=== PATIENT | male | born 1990 | race Caucasian/White ===

== ENCOUNTER 2020-12-11 07:43 | Outpatient (REF) | payer MEDICAID, SELFPAY | END 2020-12-11 07:44 | disposition home or self-care (01) | LOC: HO.LAB 07:43 | PROVIDERS: Visit Provider Internal Medicine | DX: Z20.822 Contact with and (suspected) exposure to COVID-19 (principal) | CPT/HCPCS: C9803; U0003; U0005 ==

== ENCOUNTER 2022-09-17 11:26 | Emergency (ER) | payer MEDICAID, SELFPAY ==
[2022-09-17 11:58] VITALS: BP 134/90; PULSE 119; RESP 20; TEMP 37.2; O2SAT 98; BMI 21.5
--- NOTE | 2022-09-17 11:59 | ED.BACK ---
HPI - Back Pain/Injury General Chief Complaint: Back Pain/Injury <LEANNE Manuel Last Filed: 09/17/22 12:01> Stated Complaint: Upper back pain <LEANNE Manuel Last Filed: 09/17/22 12:01> Time Seen by Provider: 09/17/22 12:08 <LEANNE Manuel Last Filed: 09/17/22 12:01> Source: patient <LEANNE Rodriguez Last Filed: 09/17/22 14:55> Mode of arrival: ambulatory <LEANNE Rodriguez Last Filed: 09/17/22 14:55> History of Present Illness HPI Narrative: 42-year-old male with no significant past medical history presenting to the ED complaining of right mid/lower back pain x1 week s/p picking up & twirling his child. Reports radiation down bilateral lower extremities. Denies numbness, tingling, weakness, urinary incontinence/retention, fever, hematuria <LEANNE Rodriguez Last Filed: 09/17/22 14:55> MD elicited complaint: back pain <LEANNE Rodriguez Last Filed: 09/17/22 14:55> Related Data Home Medications: Previous Rx's Medication Instructions Recorded acetaminophen 500 mg tablet 500 mg PO Q6H PRN fever or pain 09/17/22 (Tylenol Extra Strength) #14 tabs cyclobenzaprine 5 mg tablet 5 mg PO Q8H PRN pain (scale score 09/17/22 7-10) 5 days #14 tabs lidocaine 5 % topical patch 1 patch topical DAILY PRN pain #30 09/17/22 (Lidoderm) ea naproxen 500 mg tablet 500 mg PO BID PRN pain 10 days #20 09/17/22 tabs <LEANNE Manuel Last Filed: 09/17/22 12:01> Allergies/Adverse Reactions: Allergies Allergy/AdvReac Type Severity Reaction Status Date / Time Penicillins [PENICILLINS] Allergy Unknown UNKNOWN Verified 09/17/22 13:30 <LEANNE Manuel Last Filed: 09/17/22 12:01> Review of Systems Review of Systems: Constitutional: No Fever, No Chills ENT/Mouth: No Ear Pain, No Nasal Congestion Cardiovascular: No Chest Pain, No SOB Respiratory: No Cough, No Wheezing Gastrointestinal: No Nausea, No Vomiting, No Diarrhea, No Constipation, No Abdominal pain Genitourinary: No Dysuria, No Urinary Frequency, No Hematuria, No Urinary Incontinence/retention, No Flank Pain Musculoskeletal: + joint pain, No Myalgias, No Joint Swelling Skin: No Skin Lesions, No rash Neuro: No Weakness, No Numbness, No Paresthesias <LEANNE Rodriguez - Last Filed: 09/17/22 14:55> Yes all other systems are reviewed and are negative <LEANNE Rodriguez - Last Filed: 09/17/22 14:55> Constitutional: Constitutional: Reports as per HPI <LEANNE Rodriguez - Last Filed: 09/17/22 14:55> Neurologic: Denies Sensory deficit (Neuro) <LEANNE Rodriguez - Last Filed: 09/17/22 14:55> [facility] Past Medical History Attestation statement: The following information was validated with the patient. <LEANNE Rodriguez - Last Filed: 09/17/22 14:55> Social History Social History: Social History Advance Directives: No Advance Directives Information Provided: Yes <LEANNE Manuel - Last Filed: 09/17/22 12:01> Physical Exam Vital Signs: Vital Signs: Last Vital Signs Temp 98.8 F 09/17/22 14:39 Pulse 100 09/17/22 14:39 Resp 16 09/17/22 14:39 BP 115/65 09/17/22 14:39 Pulse Ox 98 09/17/22 14:39 O2 Del Method 09/17/22 14:39 BMI result Body Mass Index 21.5 <LEANNE Manuel - Last Filed: 09/17/22 12:01> Vital Signs: Last Vital Signs Temp 98.8 F 09/17/22 14:39 Pulse 100 09/17/22 14:39 Resp 16 09/17/22 14:39 BP 115/65 09/17/22 14:39 Pulse Ox 98 09/17/22 14:39 O2 Del Method 09/17/22 14:39 BMI result Body Mass Index 21.5 <LEANNE Rodriguez - Last Filed: 09/17/22 14:55> Const: General: cooperative, healthy appearing and no acute distress <LEANNE Rodriguez - Last Filed: 09/17/22 14:55> Orientation/consciousness: patient oriented x3 <LEANNE Rodriguez - Last Filed: 09/17/22 14:55> Limitations: no limitations <LEANNE Rodriguez - Last Filed: 09/17/22 14:55> HEENT: Head: Yes normal to inspection and Yes atraumatic <Merissa Rg PA - Last Filed: 09/17/22 14:55> Ears: hearing grossly normal bilaterally <LEANNE Rodriguez - Last Filed: 09/17/22 14:55> General nose exam: Normal external nose present <LEANNE Rodriguez - Last Filed: 09/17/22 14:55> Face and sinus: Yes normal facial exam <LEANNE Rodriguez - Last Filed: 09/17/22 14:55> Eyes: General: appearance normal, both eyes and all related structures <Merissa Rg PA - Last Filed: 09/17/22 14:55> EOM: EOMs intact bilaterally <LEANNE Rodriguez - Last Filed: 09/17/22 14:55> Neck: Neck: Yes normal visual inspection and Yes no meningeal signs <LEANNE Rodriguez - Last Filed: 09/17/22 14:55> Resp: Effort & Inspection: normal respiratory effort and no respiratory distress <LEANNE Rodriguez - Last Filed: 09/17/22 14:55> Cardio: Rate: regular rate <Merissa Rg PA - Last Filed: 09/17/22 14:55> Heart sounds: S1 normal heart sound present and S2 normal heart sound present <LEANNE Rodriguez - Last Filed: 09/17/22 14:55> GI: Inspection: Yes normal to inspection <LEANNE Rodriguez - Last Filed: 09/17/22 14:55> Palpation (GI): Soft to palpation, nontender, no guarding and not rigid <LEANNE Rodriguez - Last Filed: 09/17/22 14:55> : General: Yes no CVA tenderness <Merissa Rg PA - Last Filed: 09/17/22 14:55> Back/Spine/Pelvis: Other: No midline thoracic/lumbar spinous tenderness/step-off or deformity. + bilateral lower thoracic/upper lumbar MSK tenderness to palpation. No crepitus/erythema or ecchymosis <Merissa Rg PA - Last Filed: 09/17/22 14:55> Back: no CVA tenderness <Merissa Rg PA - Last Filed: 09/17/22 14:55> Skin: Rashes: no rashes <Merissa Rg PA - Last Filed: 09/17/22 14:55> Wounds: no wounds <Merissa Rg PA - Last Filed: 09/17/22 14:55> Neuro: Other: Strength intact throughout. No saddle anesthesia. Sensation intact to light touch. Neurovascular intact distally <Merissa Rg PA - Last Filed: 09/17/22 14:55> General: patient oriented x3, gait normal, tone normal, moves all extremities, no meningeal signs, no focal motor deficits and CN's II-XI intact bilaterally <Merissa Rg PA - Last Filed: 09/17/22 14:55> Gait exam (Neuro): Normal gait present <Merissa Rg PA - Last Filed: 09/17/22 14:55> Motor exam (neuro): 5/5 motor strength present throughout <Merissa Rg PA - Last Filed: 09/17/22 14:55> Sensory Exam: No Sensory deficit (Neuro) <Merissa Rg PA - Last Filed: 09/17/22 14:55> Extrem: General: Yes normal to inspection <LEANNE Rodriguez - Last Filed: 09/17/22 14:55> Course Course Course Narrative: RME-12PM - 32yoM with No Sig PMHx who is presenting to the ER with complaints of right upper back pain that started a day after he was lifting and holding his baby. Reports he has never had this pain in the past. He denies any fevers, chest pain, abdominal pain, nausea/vomiting, dysuria, hematuria, saddle anesthesias, urinary bowel incontinence or retention, recent falls or trauma, IV drug use or any other symptoms complaints or concerns at this time. Plan: Patient most likely muscular skeletal pain. Patient will be evaluated in [facility] [place] [facility] [place]. <LEANNE Manuel - Last Filed: 09/17/22 12:01> RME-12PM - 32yoM with No Sig PMHx who is presenting to the ER with complaints of right upper back pain that started a day after he was lifting and holding his baby. Reports he has never had this pain in the past. He denies any fevers, chest pain, abdominal pain, nausea/vomiting, dysuria, hematuria, saddle anesthesias, urinary bowel incontinence or retention, recent falls or trauma, IV drug use or any other symptoms complaints or concerns at this time. Plan: Patient most likely muscular skeletal pain. Patient will be evaluated in [facility] [place] [facility] [place]. -[id number]--patient reports symptomatic improvement after p.o. medications given in the ED. Heart rate improved Results discussed with patient including worrisome signs and symptoms and strict return precautions, and when to return to the emergency department. They verbalized understanding and feel safe for discharge at this time. <LEANNE Rodriguez - Last Filed: 09/17/22 14:55> Medications Administered Discontinued Medications Generic Name Dose Route Start Last Admin Trade Name Freq PRN Reason Stop Dose Admin Cyclobenzaprine HCl 10 mg 09/17/22 12:30 09/17/22 13:32 Cyclobenzaprine Hcl 10 Mg Tablet PO 09/17/22 12:31 10 mg ONCE ONE Administration Ketorolac Tromethamine 30 mg 09/17/22 12:30 09/17/22 13:31 Ketorolac Tromethamine 30 Mg/Ml Vial IM 09/17/22 12:31 30 mg ONCE ONE Administration Lidocaine 1 patch 09/17/22 12:30 09/17/22 13:31 Lidocaine 4 % Patch Adh..Patch TRANSDERMA 09/17/22 12:31 1 patch ONCE ONE Administration Protocol <LEANNE Manuel - Last Filed: 09/17/22 12:01> Medications Administered Discontinued Medications Generic Name Dose Route Start Last Admin Trade Name Freq PRN Reason Stop Dose Admin Cyclobenzaprine HCl 10 mg 09/17/22 12:30 09/17/22 13:32 Cyclobenzaprine Hcl 10 Mg Tablet PO 09/17/22 12:31 10 mg ONCE ONE Administration Ketorolac Tromethamine 30 mg 09/17/22 12:30 09/17/22 13:31 Ketorolac Tromethamine 30 Mg/Ml Vial IM 09/17/22 12:31 30 mg ONCE ONE Administration Lidocaine 1 patch 09/17/22 12:30 09/17/22 13:31 Lidocaine 4 % Patch Adh..Patch TRANSDERMA 09/17/22 12:31 1 patch ONCE ONE Administration Protocol <LEANNE Rodriguez - Last Filed: 09/17/22 14:55> Medical Decision Making Medical Decision Making MDM Narrative: 42-year-old male with no significant past medical history presenting to the ED complaining of right mid/lower back pain x1 week s/p picking up & twirling his child. On exam in pain, tachycardic likely from pain, NAD, no midline spinous tenderness through or red flag symptoms. Ambulating with steady gait. Concern for MSK pain/strain and muscle spasming vs sciatica. Low suspicion for fracture, cauda equina/cord compression, renal stone/pyelo Plan: Pain control, reassess Please refer to course for remaining clinical decision making, interpretation of labs/imaging results, and discussions with consultants and/or family members. <LEANNE Rodriguez Last Filed: 09/17/22 14:55> Differential Diagnosis Differential Diagnoses: The differential diagnosis associated with the presentation includes <LEANNE Rodriguez Last Filed: 09/17/22 14:55> As above <LEANNE Rodriguez Last Filed: 09/17/22 14:55> Prescription Management I considered prescription management with: Pain Medication <LEANNE Rodriguez Last Filed: 09/17/22 14:55> Discharge Plan Discharge Clinical Impression: Back pain <LEANNE Manuel Last Filed: 09/17/22 12:01> Patient Disposition: Home, Self-Care <LEANNE Manuel Last Filed: 09/17/22 12:01> Instructions: Back Pain (ED) <LEANNE Manuel Last Filed: 09/17/22 12:01> Additional Instructions: Your pain is likely musculoskeletal Flexeril is a muscle relaxer, take at night as it makes you drowsy, do not drive, drink alcohol, or operate machinery while taking it Naproxen as an anti-inflammatory / pain medication, take with food Lidoderm patches are numbing patches, apply to painful area In addition take Tylenol at home If symptoms persist or worsen, pain becomes unbearable, you developed urinary retention or incontinence, or weakness return to the ED <LEANNE Manuel - Last Filed: 09/17/22 12:01> Prescriptions: New acetaminophen [Tylenol Extra Strength] 500 mg tablet 500 mg PO Q6H PRN (Reason: fever or pain) Qty: 14 0RF lidocaine [Lidoderm] 5 % adhesive patch,medicated 1 patch topical DAILY MDD remove after 12 hours PRN (Reason: pain) Qty: 30 0RF Rx Instructions: leave on most painful area for up to 12 hrs naproxen 500 mg tablet 500 mg PO BID PRN (Reason: pain) 10 Days Qty: 20 0RF cyclobenzaprine 5 mg tablet 5 mg PO Q8H PRN (Reason: pain (scale score 7-10)) 5 Days Qty: 14 0RF <LEANNE Manuel - Last Filed: 09/17/22 12:01> Referrals: Faye Garcia MD [Primary Care Provider] - 5 days <LEANNE Manuel - Last Filed: 09/17/22 12:01>
[2022-09-17] MEDS: Lidocaine 4 % Patch ADH..PATCH 1 PATCH TRANSDERMA (13:31)
[2022-09-17] MEDS: Ketorolac Tromethamine 30 MG/ML VIAL IM (13:31)
[2022-09-17] MEDS: Cyclobenzaprine HCl 10 MG TABLET PO (13:32)
[2022-09-17 14:39] VITALS: BP 115/65; PULSE 100; RESP 16; TEMP 37.1; O2SAT 98
== END 2022-09-17 14:58 | disposition home or self-care (01) ==
PROVIDERS: Emergency Provider Emergency Medicine; PCP Internal Medicine
DX: M54.6 Pain in thoracic spine (principal); R00.0 Tachycardia, unspecified
CPT/HCPCS: 96372; 99283; 99284; J1885

== ENCOUNTER 2022-11-26 13:40 | Emergency (ER) | payer MEDICAID, SELFPAY ==
[2022-11-26 14:57] VITALS: BP 132/68; PULSE 91; RESP 17; TEMP 36.3; O2SAT 98; BMI 25.0
--- NOTE | 2022-11-26 14:57 | ED_ITS ---
HPI - General Adult General Chief complaint: General Medical <LEANNE Rodriguez - Last Filed: 11/26/22 15:04> Stated complaint: Joint pain <LEANNE Rodriguez - Last Filed: 11/26/22 15:04> Time Seen by Provider: 11/26/22 20:34 <LEANNE Rodriguez - Last Filed: 11/26/22 15:04> Source: patient <Alexander Kirby MD - Last Filed: 11/26/22 20:57> Mode of arrival: ambulatory <Alexander Kirby MD - Last Filed: 11/26/22 20:57> Limitations: no limitations <Alexander Kirby MD - Last Filed: 11/26/22 20:57> History of Present Illness HPI narrative: 32-year-old male presents with multiple joint pains. The pains that he complains about include predominantly the PIP use, elbows, shoulders. They are associated with joint swelling. Symptoms going on for several months. Symptoms are worse with movement. He feels quite debilitated generally weak. 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 He also notes swelling to the right elbow. He does have a family history of gout. He denies any fevers or chills. No nausea vomiting. No rashes or crusty lesions. <Alexander Kirby MD - Last Filed: 11/26/22 20:57> Related Data Home medications: Previous Rx's Medication Instructions Recorded meloxicam 15 mg tablet 15 mg PO DAILY #14 tabs 11/26/22 prednisone 10 mg tablet 10 mg PO DIRECTED #44 tabs 11/26/22 <LEANNE Rodriguez - Last Filed: 11/26/22 15:04> Allergies/adverse reactions: Allergies Allergy/AdvReac Type Severity Reaction Status Date / Time Penicillins [PENICILLINS] Allergy Unknown UNKNOWN Verified 09/17/22 13:30 <LEANNE Rodriguez - Last Filed: 11/26/22 15:04> [facility] Social History Social History: Social History Advance Directives: No Advance Directives Information Provided: No <LEANNE Rodriguez Last Filed: 11/26/22 15:04> Physical Exam ED Vital Signs: Vital Signs - 24 hr 11/26/22 14:57 Temperature 97.4 F Pulse Rate 91 Respiratory Rate 17 Blood Pressure 132/68 Pulse Oximetry 98 Oxygen Delivery Method Room Air BMI result Body Mass Index 25.0 <LEANNE Rodriguez - Last Filed: 11/26/22 15:04> Vital Signs - 24 hr 11/26/22 14:57 Temperature 97.4 F Pulse Rate 91 Respiratory Rate 17 Blood Pressure 132/68 Pulse Oximetry 98 Oxygen Delivery Method Room Air BMI result Body Mass Index 25.0 <Alexander Kirby MD - Last Filed: 11/26/22 20:57> GEN: Well developed, no acute distress, alert, oriented HEENT: Normocephalic, atraumatic, normal external ears, nose appears normal Eyes: Normal to appearance Neck: Supple, no lymphadenopathy Respiratory: Talks in complete sentences, no respiratory distress Extremities: No clubbing cyanosis or edema, arthritis involving the PIP use, elbows range of motion of the shoulders bilaterally, olecranon bursitis versus tophaceous gout Neurologic: No focal neurologic deficits, cranial nerves 2-12 intact, gait normal Skin: No rash <Alexander Kirby MD - Last Filed: 11/26/22 20:57> Course Course Course Narrative: RME: 32yo M w/no sig PMHx c/o diffuse myalgias, numbness, and generalized weakness x 3mos. States I'm useless Denies fever, chills, travel, tick/insect bites No focal weakness appreciated, ambulating w/steady gait, +bursitis to L elbow EKG, labs including tick borne illness/lyme & FAYE titer ordered Full HPI, ROS and PE to be performed by primary ED provider. <LEANNE Rodriguez - Last Filed: 11/26/22 15:04> Reevaluation(s) Reevaluation #1: Patient has a symmetric polyarthritis with also olecranon bursitis. Given the duration of the symptoms, I believe a course of steroids would be appropriate at this time. Start the patient on nonsteroidal anti-inflammatory medications. I will refer the patient to Rheumatology. <Alexander Kirby MD - Last Filed: 11/26/22 20:57> Medical Decision Making Medical Decision Making MDM Narrative: 32-year-old male presents with symmetric polyarthritis particularly involving the elbows, PIP use, MCPs, shoulders. He also has what appears to be olecranon bursitis versus tophaceous gout on the right elbow. Patient will require rheumatology referral. I will start the patient on steroids and anti- inflammatory pain medications. He is aware that we would prefer to use steroid sparing treatment however, given the duration significance of his symptoms, I believe patient would benefit from a short course of steroids. <Alexander Kirby MD - Last Filed: 11/26/22 20:57> Differential Diagnosis Differential Diagnoses: The differential diagnosis associated with the presentation includes (Rheumatoid arthritis, lupus, Raulito syndrome, reactive arthritis, gout, pseudogout) <Alexander Kirby MD - Last Filed: 11/26/22 20:57> Symmetric polyarthritis <Alexander Kirby MD - Last Filed: 11/26/22 20:57> Lab Data MDM Lab Attestation statement: I reviewed the patient's lab results. <Alexander Kirby MD - Last Filed: 11/26/22 20:57> Result Diagrams: 11/26/22 15:19 11/26/22 15:19 <LEANNE Rodriguez - Last Filed: 11/26/22 15:04> Labs: Lab Results 11/26/22 11/26/22 Range/Units 15:19 15:19 WBC 10.7 (4.8-10.8) X10*3/uL RBC 3.99 L (4.60-5.80) X10*6/uL Hgb 11.0 L (14.0-18.0) g/dl Hct 34.1 L (42.0-52.0) % MCV 85.5 (80.0-98.0) fL MCH 27.6 (27.0-33.0) pg MCHC 32.3 (31.0-36.0) g/dl RDW 13.8 (11.0-16.0) % Plt Count 661 H (160-400) X10*3/uL MPV 8.8 L (9.4-12.4) fL Immature Gran % (Auto) 0.5 H (0.0-0.4) % Neut % (Auto) 73.0 (45-73) % Lymph % (Auto) 18.1 L (20-40) % Nance % (Auto) 7.0 (2-11) % Eos % (Auto) 0.7 (0-4) % Baso % (Auto) 0.7 (0-2) % Lymph # (Auto) 1.9 (1.2-4.9) X10*3/uL Nance # (Auto) 0.8 (0.1-1.2) X10*3/uL Eos # (Auto) 0.1 (0.0-0.4) X10*3/uL Baso # (Auto) 0.1 (0.0-0.2) X10*3/uL Abs Immat Gran (auto) 0.05 H (0.00-0.03) X10*3/uL Absolute Neuts (auto) 7.8 (2.0-8.3) x10*3/uL Absolute Nucleated RBC 0.000 (0.0-0.012) X10*3/uL Nucleated RBC % (auto) 0.0 (0.0-0.2) /100WBC Sodium 140 (135-145) mmol/L Potassium 4.4 (3.3-5.1) mmol/L Chloride 100 (96-108) mmol/L Carbon Dioxide 31 H (22-29) mmol/L Anion Gap 13 (12-20) BUN 14 (9-16) mg/dL Creatinine 0.87 (0.5-1.4) mg/dL Estim Creat Clear Calc 124.6 Estimated GFR > 60 Random Glucose 106 (60-115) mg/dL Calcium 9.1 (8.4-10.2) mg/dL Magnesium 1.9 (1.6-2.6) mg/dL Total Bilirubin 0.3 (0.0-1.0) mg/dL Direct Bilirubin 0.1 (0.0-0.5) mg/dL AST 17 (5-37) U/L ALT 17 (0-40) U/L Alkaline Phosphatase 72 (39-117) U/L Total Protein 7.0 (6.5-8.0) g/dL Albumin 3.6 (3.5-5.0) g/dL <LEANNE Rodriguez - Last Filed: 11/26/22 15:04> Lab Results 11/26/22 11/26/22 Range/Units 15:19 15:19 WBC 10.7 (4.8-10.8) X10*3/uL RBC 3.99 L (4.60-5.80) X10*6/uL Hgb 11.0 L (14.0-18.0) g/dl Hct 34.1 L (42.0-52.0) % MCV 85.5 (80.0-98.0) fL MCH 27.6 (27.0-33.0) pg MCHC 32.3 (31.0-36.0) g/dl RDW 13.8 (11.0-16.0) % Plt Count 661 H (160-400) X10*3/uL MPV 8.8 L (9.4-12.4) fL Immature Gran % (Auto) 0.5 H (0.0-0.4) % Neut % (Auto) 73.0 (45-73) % Lymph % (Auto) 18.1 L (20-40) % Nance % (Auto) 7.0 (2-11) % Eos % (Auto) 0.7 (0-4) % Baso % (Auto) 0.7 (0-2) % Lymph # (Auto) 1.9 (1.2-4.9) X10*3/uL Nance # (Auto) 0.8 (0.1-1.2) X10*3/uL Eos # (Auto) 0.1 (0.0-0.4) X10*3/uL Baso # (Auto) 0.1 (0.0-0.2) X10*3/uL Abs Immat Gran (auto) 0.05 H (0.00-0.03) X10*3/uL Absolute Neuts (auto) 7.8 (2.0-8.3) x10*3/uL Absolute Nucleated RBC 0.000 (0.0-0.012) X10*3/uL Nucleated RBC % (auto) 0.0 (0.0-0.2) /100WBC Sodium 140 (135-145) mmol/L Potassium 4.4 (3.3-5.1) mmol/L Chloride 100 (96-108) mmol/L Carbon Dioxide 31 H (22-29) mmol/L Anion Gap 13 (12-20) BUN 14 (9-16) mg/dL Creatinine 0.87 (0.5-1.4) mg/dL Estim Creat Clear Calc 124.6 Estimated GFR > 60 Random Glucose 106 (60-115) mg/dL Calcium 9.1 (8.4-10.2) mg/dL Magnesium 1.9 (1.6-2.6) mg/dL Total Bilirubin 0.3 (0.0-1.0) mg/dL Direct Bilirubin 0.1 (0.0-0.5) mg/dL AST 17 (5-37) U/L ALT 17 (0-40) U/L Alkaline Phosphatase 72 (39-117) U/L Total Protein 7.0 (6.5-8.0) g/dL Albumin 3.6 (3.5-5.0) g/dL <Alexander Kirby MD - Last Filed: 11/26/22 20:57> Independent Interpretation I performed an independent interpretation of an: EKG (Normal sinus rhythm heart rate 78, early repolarization, question of LDH) <Alexander Kirby MD - Last Filed: 11/26/22 20:57> Prescription Management I considered prescription management with: Pain Medication <Alexander Kirby MD - Last Filed: 11/26/22 20:57> Discharge Plan Discharge Clinical Impression: Symmetrical polyarthritis, Olecranon bursitis, right elbow <LEANNE Rodriguez - Last Filed: 11/26/22 15:04> Patient Disposition: Home, Self-Care <LEANNE Rodriguez - Last Filed: 11/26/22 15:04> Instructions: Elbow Bursitis (ED), Arthritis (ED) <LEANNE Rodriguez - Last Filed: 11/26/22 15:04> Prescriptions: New prednisone 10 mg tablet 10 mg PO DIRECTED Qty: 44 0RF Rx Instructions: 6 tablets day 1-2, 5 tablets day 3-4, 4 tablets day 5-6, 3 tablets day 7-8, 2 tablets day 9-10, 1 tablet day 11-14 meloxicam 15 mg tablet 15 mg PO DAILY Qty: 14 0RF Discontinued acetaminophen [Tylenol Extra Strength] 500 mg tablet 500 mg PO Q6H PRN (Reason: fever or pain) Qty: 14 0RF lidocaine [Lidoderm] 5 % adhesive patch,medicated 1 patch topical DAILY MDD remove after 12 hours PRN (Reason: pain) Qty: 30 0RF Rx Instructions: leave on most painful area for up to 12 hrs naproxen 500 mg tablet 500 mg PO BID PRN (Reason: pain) 10 Days Qty: 20 0RF cyclobenzaprine 5 mg tablet 5 mg PO Q8H PRN (Reason: pain (scale score 7-10)) 5 Days Qty: 14 0RF <LEANNE Rodriguez - Last Filed: 11/26/22 15:04> Referrals: [facility] [place] [facility] [Provider Group] - 10 days Faye Garcia MD [Primary Care Provider] - 1 week <LEANNE Rodriguez - Last Filed: 11/26/22 15:04>
--- NOTE | 2022-11-26 15:02 | ECG_ITS ---
Test Reason : general medical Blood Pressure : / mmHG Vent. Rate : 086 BPM Atrial Rate : 086 BPM P-R Int : 162 ms QRS Dur : 098 ms QT Int : 350 ms P-R-T Axes : 068 107 052 degrees QTc Int : 418 ms Normal sinus rhythm Right axis deviation Possible Right ventricular hypertrophy Abnormal ECG When compared with ECG of 10-OCT-2017 11:08, No significant change was found Referred By: Merissa Rg Electronically Signed By:Cuauhtemoc Koch
[2022-11-26 15:30] LABS: MANUAL DIFF FLAG NO
[2022-11-26 15:34] LABS: Basophils Absolute Auto 0.1 X10*3/uL (0.0-0.2); Basophils Percent Auto 0.7 % (0-2); Eosinophils Absolute Auto 0.1 X10*3/uL (0.0-0.4); Eosinophils Percent Auto 0.7 % (0-4); Hematocrit 34.1 % (42.0-52.0); Imm Gran Abs Auto 0.05 X10*3/uL (0.00-0.03); Imm Gran Pct Auto 0.5 % (0.0-0.4); Lymphocytes Absolute Auto 1.9 X10*3/uL (1.2-4.9); Lymphocytes Percent Auto 18.1 % (20-40); Mean Corpuscular HGB Conc 32.3 g/dl (31.0-36.0); Mean Corpuscular Hemoglobin 27.6 pg (27.0-33.0); Mean Corpuscular Volume 85.5 fL (80.0-98.0); Mean Platelet Volume 8.8 fL (9.4-12.4); Monocytes Absolute Auto 0.8 X10*3/uL (0.1-1.2); Neutrophils Absolute Auto 7.8 x10*3/uL (2.0-8.3); Platelet Count 661 X10*3/uL (160-400); Red Blood Count 3.99 X10*6/uL (4.60-5.80); Red Cell Distribution Width 13.8 % (11.0-16.0); White Blood Count 10.7 X10*3/uL (4.8-10.8)
[2022-11-26 15:49] LABS: Alanine Aminotransferase 17 U/L (0-40); Albumin Level 3.6 g/dL (3.5-5.0); Alkaline Phosphatase 72 U/L (39-117); Anion Gap 13 (12-20); Aspartate Amino Transferase 17 U/L (5-37); Bilirubin Direct 0.1 mg/dL (0.0-0.5); Bilirubin Total 0.3 mg/dL (0.0-1.0); Blood Urea Nitrogen 14 mg/dL (9-16); Calcium 9.1 mg/dL (8.4-10.2); Carbon Dioxide 31 mmol/L (22-29); Chloride 100 mmol/L (96-108); Creatinine Clr Calc Pharmacy 124.6; Estimated Glomerular Filt Rate > 60; Glucose Random 106 mg/dL (60-115); Magnesium 1.9 mg/dL (1.6-2.6); Potassium 4.4 mmol/L (3.3-5.1); Sodium 140 mmol/L (135-145)
--- NOTE | 2022-11-26 20:46 | PC.NURSE ---
at bedside speaking with patient & his family ( & toddler).
[2022-11-26] MEDS: predniSONE 20 MG TABLET 60 MG PO (21:10)
[2022-11-26] MEDS: Ibuprofen 800 MG TABLET PO (21:10)
[2022-11-29 21:22] LABS: Lyme Blot 1.58 index
[2022-11-30 23:02] LABS: A. Phagocytphilium DNA,RT-PCR NOT DETECTED (NOT DETECTED); Babesia Microti DNA, RT-PCR NOT DETECTED (NOT DETECTED); Borrelia Miyamotoi,DNA RT-PCR NOT DETECTED (NOT DETECTED); E.Chaffeensis DNA RT-PCR NOT DETECTED (NOT DETECTED); Lyme(Borrelia ssp)DNA RT-PCR NOT DETECTED (NOT DETECTED)
[2022-12-01 08:03] LABS: Anti Nuclear Antibody Screen NEGATIVE (NEGATIVE)
[2022-12-01 09:21] LABS: 18 KD (IgG) Band NON-REACTIVE; 23 KD (IgG) Band NON-REACTIVE; 23 KD (IgM) Band NON-REACTIVE; 28 KD (IgG) Band NON-REACTIVE; 30 KD (IgG) Band NON-REACTIVE; 39 KD (IgM) Band NON-REACTIVE; 39KD (IgG) Band NON-REACTIVE; 41 KD (IgM) Band NON-REACTIVE; 41KD (IgG) Band NON-REACTIVE; 45 KD (IgG) Band NON-REACTIVE; 58 KD (IgG) Band NON-REACTIVE; 66 KD (IgG) Band NON-REACTIVE; 93 KD (IgG) Band NON-REACTIVE; Lyme Abs Screen POSITIVE; Lyme IgG Blot Interp NEGATIVE (NEGATIVE); Lyme IgM Blot Interp NEGATIVE (NEGATIVE)
== END 2022-11-26 21:20 | disposition home or self-care (01) ==
PROVIDERS: Physician Assistant; Emergency Provider Emergency Medicine; PCP Internal Medicine
DX: M70.21 Olecranon bursitis, right elbow (principal); M13.0 Polyarthritis, unspecified; R53.1 Weakness; Y93.9 Activity, unspecified
CPT/HCPCS: 36415; 80048; 80076; 83735; 85025; 86038; 86039; 86617; 86618; 87798; 87801; 93005; 99283

== ENCOUNTER 2023-01-31 15:00 | Outpatient (REF) | payer MEDICAID, SELFPAY ==
--- NOTE | ~2023-01-31 | XR_ITS ---
EXAMINATION: XR LUMBAR SPINE XR THORACIC SPINE CLINICAL INFORMATION: Neck and upper back back pain 4-5 months. Unable to recall injury. COMPARISON: None available. TECHNIQUE: 3 views of the cervical spine and 3 views of the thoracic line. FINDINGS: Cervical Spine: Mild degenerative changes with hypertrophic change and loss of disc space height at C6-C7. Alignment preserved. Thoracic Spine: Slight rightward curvature of the thoracic spine. Mild degenerative changes in the thoracic spine. XR/XR cervical spine 3V IMPRESSION: 1. Mild degenerative changes at C6-C7. 2. Mild multilevel degenerative changes in the thoracic spine.
--- NOTE | ~2023-01-31 | XR_ITS ---
EXAMINATION: XR LUMBAR SPINE XR THORACIC SPINE CLINICAL INFORMATION: Neck and upper back back pain 4-5 months. Unable to recall injury. COMPARISON: None available. TECHNIQUE: 3 views of the cervical spine and 3 views of the thoracic line. FINDINGS: Cervical Spine: Mild degenerative changes with hypertrophic change and loss of disc space height at C6-C7. Alignment preserved. Thoracic Spine: Slight rightward curvature of the thoracic spine. Mild degenerative changes in the thoracic spine. XR/XR thoracic spine 2V IMPRESSION: 1. Mild degenerative changes at C6-C7. 2. Mild multilevel degenerative changes in the thoracic spine.
== END 2023-01-31 15:01 | disposition home or self-care (01) ==
LOC: HO.HHCX 15:00
PROVIDERS: Visit Provider Student in an Organized Health Care Education/Training Program
DX: M54.2 Cervicalgia (principal); M25.50 Pain in unspecified joint; M54.9 Dorsalgia, unspecified
CPT/HCPCS: 72040; 72070

== ENCOUNTER 2023-06-29 12:10 | Outpatient (REF) | payer MEDICAID, SELFPAY ==
[2023-06-29 13:24] LABS: MANUAL DIFF FLAG NO
[2023-06-29 13:37] LABS: Basophils Absolute Auto 0.1 X10*3/uL (0.0-0.2); Basophils Percent Auto 0.6 % (0-2); Eosinophils Percent Auto 0.5 % (0-4); Hematocrit 44.1 % (42.0-52.0); Hemoglobin 14.3 g/dl (14.0-18.0); Imm Gran Abs Auto 0.03 X10*3/uL (0.00-0.03); Imm Gran Pct Auto 0.4 % (0.0-0.4); Lymphocytes Absolute Auto 2.6 X10*3/uL (1.2-4.9); Lymphocytes Percent Auto 31.3 % (20-40); Mean Corpuscular HGB Conc 32.4 g/dl (31.0-36.0); Mean Corpuscular Hemoglobin 29.1 pg (27.0-33.0); Mean Corpuscular Volume 89.8 fL (80.0-98.0); Mean Platelet Volume 10.4 fL (9.4-12.4); Monocytes Absolute Auto 0.7 X10*3/uL (0.1-1.2); Monocytes Percent Auto 8.2 % (2-11); Platelet Count 350 X10*3/uL (160-400); Red Blood Count 4.91 X10*6/uL (4.60-5.80); Red Cell Distribution Width 13.1 % (11.0-16.0); White Blood Count 8.4 X10*3/uL (4.8-10.8)
[2023-06-29 14:07] LABS: Alanine Aminotransferase 13 U/L (0-40); Albumin Level 4.6 g/dL (3.5-5.0); Alkaline Phosphatase 85 U/L (39-117); Anion Gap 11 (12-20); Aspartate Amino Transferase 16 U/L (5-37); Bilirubin Total 0.2 mg/dL (0.0-1.0); Blood Urea Nitrogen 15 mg/dL (9-16); C Reactive Protein 0.59 mg/dL (< or = 0.50); Calcium 9.6 mg/dL (8.4-10.2); Carbon Dioxide 28 mmol/L (22-29); Chloride 102 mmol/L (96-108); Estimated Glomerular Filt Rate > 60; Glucose Random 89 mg/dL (60-115); Potassium 4.3 mmol/L (3.3-5.1); Sodium 137 mmol/L (135-145)
[2023-06-29 14:13] LABS: Erythrocyte Sedimentation Rate 8 MM/HR (0-15)
[2023-06-29 14:16] LABS: Parathyroid Hormone Intact 36.7 pg/mL (8.7-77.1)
[2023-06-30 21:44] LABS: Prot Elec - Albumin 4.6 g/dL (3.8-4.8); Prot Elec - Alpha1 0.3 g/dL (0.2-0.3); Prot Elec - Alpha2 0.7 g/dL (0.5-0.9); Prot Elec - Beta 1 0.4 g/dL (0.4-0.6); Prot Elec - Beta 2 0.5 g/dL (0.2-0.5); Prot Elec - Gamma 1.1 g/dL (0.8-1.7); Prot Elec - Total Protein 7.5 g/dL (6.1-8.1)
[2023-07-01 12:49] LABS: PEU-Protein Creat Ratio Rand 0.041 (0.025-0.148); PEU-Rand. Prot/Creat Ratio 41 mg/g creat (25-148); PEU-Random Ur. Gamma Globulin 0 %; PEU-Random Urine A1 Globulin 0 %; PEU-Random Urine A2 Globulin 0 %; PEU-Random Urine Albumin 100 %; PEU-Random Urine Beta Globulin 0 %; PEU-Random Urine Creatinine 147 mg/dL (20-320); PEU-Random Urine Protein 6 mg/dL (5-25)
[2023-07-02 10:54] LABS: IgA 288 mg/dL (47-310); IgG 1213 mg/dL (600-1640); IgM 95 mg/dL (50-300)
== END 2023-06-29 12:11 | disposition home or self-care (01) ==
LOC: HO.HHCL 12:10
PROVIDERS: Visit Provider Student in an Organized Health Care Education/Training Program
DX: D75.839 Thrombocytosis, unspecified (principal); R77.9 Abnormality of plasma protein, unspecified; M25.50 Pain in unspecified joint
CPT/HCPCS: 36415; 80053; 82570; 82784; 83970; 84156; 84165; 84166; 85025; 85652; 86140; 86334

== ENCOUNTER 2023-07-06 13:31 | Outpatient (REF) | payer MEDICAID, SELFPAY ==
--- NOTE | 2023-07-06 13:34 | EMG_ITS ---
Chief complaint: Back and neck pain, numbness on feet when lying down Reason for referral: Evaluate for neuropathy Referred by: Dr. Headley Procedure done: Bilateral lower extremity NCS/EMG Precautions and/or limitations: None The limb temperature was monitored continuously and remained between 32-36 degrees C during the performance of the NCS. Nerve Conduction Studies Anti Sensory Summary Table ?Stim Site NR Onset (ms) Norm Onset (ms) Peak (ms) Norm Peak (ms) O-P Amp (?V) Norm O-P Amp Site1 Site2 Delta-0 (ms) Dist (cm) Tru (m/s) Norm Tru (m/s) Left Sural Anti Sensory (Lat Mall) Calf ? 2.2 3.1 <4.0 7.2 >5.0 Calf Lat Mall 2.2 14.0 64 Right Sural Anti Sensory (Lat Mall) Calf ? 2.7 3.3 <4.0 14.6 >5.0 Calf Lat Mall 2.7 14.0 52 Motor Summary Table ?Stim Site NR Onset (ms) Norm Onset (ms) O-P Amp (mV) Norm O-P Amp iAmp (mV) Amp (1st) (%) Site1 Site2 Delta-0 (ms) Dist (cm) Tru (m/s) Norm Tru (m/s) Left Peroneal Motor (Ext Dig Brev) Ankle ? 3.8 <4.0 8.5 >2.5 10.9 100.0 Ankle Ext Dig Brev 3.8 0.0 B Fib ? 12.2 7.0 9.0 82.4 B Fib Ankle 8.4 36.0 43 >40 Poplt ? 13.0 8.1 10.6 95.3 Poplt B Fib 0.8 6.0 75 >40 Right Peroneal Motor (Ext Dig Brev) Ankle ? 3.7 <4.0 5.5 >2.5 6.7 100.0 Ankle Ext Dig Brev 3.7 0.0 B Fib ? 11.2 5.2 6.5 94.5 B Fib Ankle 7.5 39.0 52 >40 Poplt ? 12.8 6.1 7.2 110.9 Poplt B Fib 1.6 6.0 37 >40 Right Tibial Motor (Abd Hernandez Brev) Ankle ? 3.8 <5 7.1 >2.5 10.4 100.0 Ankle Abd Hernandez Brev 3.8 0.0 Knee ? 12.3 7.9 12.0 111.3 Knee Ankle 8.5 43.0 51 >40 EMG ?Side Muscle Nerve Root Ins Act Fibs Psw Amp Dur Poly Recrt Int Pat Comment Right AbdHallucis MedPlantar S1-2 Nml Nml Nml Nml Nml 0 Nml Complete Right AntTibialis Dp Br Peron L4-5 Nml Nml Nml Nml Nml 0 Nml Complete Right MedGastroc Tibial S1-2 Nml Nml Nml Nml Nml 0 Nml Complete Right VastusMed Femoral L2-4 Nml Nml Nml Nml Nml 0 Nml Complete Right Peroneus Long Sup Br Peron L5-S1 Nml Nml Nml Nml Nml 0 Nml Complete Left AntTibialis Dp Br Peron L4-5 Nml Nml Nml Nml Nml 0 Nml Complete Left MedGastroc Tibial S1-2 Nml Nml Nml Nml Nml 0 Nml Complete Left VastusMed Femoral L2-4 Nml Nml Nml Nml Nml 0 Nml Complete FINDINGS: Right peroneal nerve showed normal distal latency, normal amplitude and small conduction velocity across the fibula. All other nerves tested were within normal. Concentric needle EMG was performed in selected muscles of the bilateral lower extremity. Study did not reveal signs of electric abnormalities as shown in the table below. IMPRESSION: 1. This is an abnormal study. 2. 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 3. There is no electrodiagnostic evidence for tibial neuropathy. lumbosacral plexopathy, lumbar radiculopathy, or peripheral neuropathy. Thank you for your kind referral. Hanane Avitia MD, GATO Board Certified, [place] [employer] and [employer] (ABPMR) Board Certified, [place] Board [employer] Electrodiagnostic [employer] (ABEM) CODIN [id number] MTDD
== END 2023-07-06 13:32 | disposition home or self-care (01) ==
LOC: HO.NEURO 13:31
PROVIDERS: PCP Internal Medicine; Visit Provider Student in an Organized Health Care Education/Training Program
DX: M25.50 Pain in unspecified joint (principal)
CPT/HCPCS: 95885; 95886; 95909

== ENCOUNTER 2023-07-27 12:54 | Outpatient (REF) | payer MEDICAID, SELFPAY ==
[2023-07-27 13:55] LABS: MANUAL DIFF FLAG NO
[2023-07-27 14:58] LABS: Basophils Percent Auto 0.5 % (0-2); Eosinophils Absolute Auto 0.1 X10*3/uL (0.0-0.4); Eosinophils Percent Auto 0.7 % (0-4); Hematocrit 38.6 % (42.0-52.0); Hemoglobin 12.9 g/dl (14.0-18.0); Imm Gran Abs Auto 0.04 X10*3/uL (0.00-0.03); Imm Gran Pct Auto 0.5 % (0.0-0.4); Lymphocytes Absolute Auto 2.4 X10*3/uL (1.2-4.9); Lymphocytes Percent Auto 32.3 % (20-40); Mean Corpuscular HGB Conc 33.4 g/dl (31.0-36.0); Mean Corpuscular Hemoglobin 29.5 pg (27.0-33.0); Mean Corpuscular Volume 88.1 fL (80.0-98.0); Mean Platelet Volume 10.1 fL (9.4-12.4); Monocytes Absolute Auto 0.8 X10*3/uL (0.1-1.2); Monocytes Percent Auto 10.2 % (2-11); Neutrophils Absolute Auto 4.1 x10*3/uL (2.0-8.3); Neutrophils Percent Auto 55.8 % (45-73); Platelet Count 291 X10*3/uL (160-400); Red Blood Count 4.38 X10*6/uL (4.60-5.80); Red Cell Distribution Width 13.2 % (11.0-16.0); White Blood Count 7.4 X10*3/uL (4.8-10.8)
[2023-07-27 16:11] LABS: Alanine Aminotransferase 17 U/L (0-40); Albumin Level 4.1 g/dL (3.5-5.0); Alkaline Phosphatase 83 U/L (39-117); Anion Gap 9 (12-20); Aspartate Amino Transferase 18 U/L (5-37); Bilirubin Total 0.2 mg/dL (0.0-1.0); Blood Urea Nitrogen 10 mg/dL (9-16); Calcium 9.2 mg/dL (8.4-10.2); Carbon Dioxide 29 mmol/L (22-29); Chloride 107 mmol/L (96-108); Estimated Glomerular Filt Rate > 60; Glucose Random 84 mg/dL (60-115); Potassium 4.1 mmol/L (3.3-5.1); Sodium 141 mmol/L (135-145)
[2023-07-27 16:16] LABS: Erythrocyte Sedimentation Rate 7 MM/HR (0-15)
[2023-07-28 08:03] LABS: HBS Num1 137.51 mIU/mL (0-7.99); HBc Num1 0.05 S/CO (0.00-0.79); HBsAGNum1 0.28 S/CO (0.00-0.99); Hepatitis A Antibody IgM 0.15 Index (0-0.79); Hepatitis B Core Antibody Nonreactive (Nonreactive); Hepatitis B Surface Antigen Negative (Negative); ~HepC Num1 0.08 S/CO (0.00-0.79); ~Hepatitis A Antibody IgM Nonreactive (Nonreactive); ~Hepatitis B Surface Antibody REACTIVE (Nonreactive); ~Hepatitis C Antibody Nonreactive (Nonreactive)
[2023-07-28 11:29] LABS: Prot Elec - Albumin 4.2 g/dL (3.8-4.8); Prot Elec - Alpha1 0.3 g/dL (0.2-0.3); Prot Elec - Alpha2 0.5 g/dL (0.5-0.9); Prot Elec - Beta 1 0.4 g/dL (0.4-0.6); Prot Elec - Beta 2 0.4 g/dL (0.2-0.5); Prot Elec - Gamma 0.9 g/dL (0.8-1.7); Prot Elec - Total Protein 6.7 g/dL (6.1-8.1)
[2023-07-29 14:34] LABS: IgA 257 mg/dL (47-310); IgG 1101 mg/dL (600-1640); IgM 70 mg/dL (50-300)
[2023-07-29 21:28] LABS: TS Negative Control Passed; TS Panel A 0; TS Panel B 0; TS Positive Control Passed; TSpotTB Negative (Negative)
[2023-07-31 01:18] LABS: HLA B27 Negative (Negative)
== END 2023-07-27 12:55 | disposition home or self-care (01) ==
LOC: HO.LAB 12:54
PROVIDERS: PCP Internal Medicine; Visit Provider Student in an Organized Health Care Education/Training Program
DX: L40.50 Arthropathic psoriasis, unspecified (principal); M45.9 Ankylosing spondylitis of unspecified sites in spine; M19.90 Unspecified osteoarthritis, unspecified site; Z11.7 Encounter for testing for latent tuberculosis infection; Z11.59 Encounter for screening for other viral diseases
CPT/HCPCS: 36415; 72110; 72202; 73110; 73130; 73610; 73630; 80053; 82784; 84165; 85025; 85652; 86140; 86334; 86481; 86704; 86706; 86709; 86803; 86812; 87340; 99202

== ENCOUNTER 2023-07-27 12:54 | Outpatient (AMB) | payer MEDICAID, SELFPAY ==
--- NOTE | 2023-07-27 12:55 | A.OFFVIS_ITS ---
Intake Vital Signs 07/27/23 12:57 Height 5 ft 10 in Weight 174 lb 2.643 oz BMI 25.0 BP 110/84 Blood Pressure Location Lt brachial Position Sitting Pulse 78 Pulse Source Pulse Oximeter Temp 97.8 F Temp Source Skin Pulse Oximetry (%) 98 Oxygen Delivery Method Room Air Intake Visit Reasons: Polyarthralgia Intake Note: New patient presents today for multiple joint pains that come and go. 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 He stated that the condition started about a year ago with intermittent joint pain, swelling and stiffness, including his hands, feet, right elbow, neck, upper back. He went to the emergency room 1 time when his entire body froze with stiffness and he was prescribed prednisone with dramatic improvement. He had another ER visit and was found to have right olecranon bursitis. This has since resolved. States that he has generalized morning stiffness affecting his upper neck, back and entire body lasting at least 30 minutes. He gets episodes with sausage digits affecting his right thumb. He states that has always been double jointed he never dislocated a joint. He denies any history of any rashes. Denies any GI upset. Denies any fevers. He has been taking meloxicam 7.5 mg daily regularly for past year and feels better overall. He is unaware of any family history of an autoimmune rheumatic disease [facility] Medical History Neck pain Anxiety Elevated C-reactive protein (CRP) Pain in joint, multiple sites Back pain Surgical History No history of previous surgery Family History Mother No problems noted. 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 Review of Systems Const Denies fever(s) and Denies weight gain ENT Reports neck pain Musc Reports back pain, Reports arthralgias, Reports joint swelling, Reports limited range of motion, Reports neck pain and Reports stiffness Skin/Breast Denies rash Physical Exam Vital Signs: Last Vital Signs Temp 97.8 F 07/27/23 12:57 Pulse 78 07/27/23 12:57 BP 110/84 07/27/23 12:57 Pulse Ox 98 07/27/23 12:57 Oxygen Delivery Method Room Air 07/27/23 12:57 BMI result Body Mass Index 25.0 Const General: cooperative, healthy appearing and comfortable Nutritional Appearance: average body habitus Orientation/consciousness: patient oriented x3 Limitations: no limitations HEENT Head: Yes normocephalic and Yes atraumatic Mouth: moist mucous membranes Resp Effort & Inspection: normal respiratory effort and able to speak in complete sentences Auscultation: clear to auscultation bilaterally Cardio Rate: regular rate Rhythm: regular rhythm Heart sounds: S1 normal heart sound present and S2 normal heart sound present GI Inspection: No distended Palpation (GI): Soft to palpation and nontender Skin General skin exam: no rashes or lesions noted Neuro General: patient oriented x3 Extrem Other: Mild boggy swelling of left 1st MCP. Tenderness of left 1st interphalangeal joints Right 5th MCP swelling and tenderness Right wrist pain with full extension No swelling or tenderness left hand and wrist Normal range of motion of both elbows without pain Positive empty can test on the right No nail pitting Normal nailfold capillaroscopy Swelling of the entire left 4th toe Swelling of left 3rd and 4th MTPs and tenderness along the left 3rd and 4th extensor tendons Benjy test 10-15 cm Negative straight leg raise test bilaterally Nick test on the right produces left lower back pain Patient able to put both palms on the floor while standing, knee straight Bilateral thumb hypermobility Assessment & Plan Assessment & Plan (1) Inflammatory arthritis: Code(s): M19.90 - Unspecified osteoarthritis, unspecified site Plan: This is a 33-year-old male presents for evaluation of a 1 year history of intermittent joint pain, swelling and stiffness, he has axial and peripheral symptoms. History of collection all bursitis. On exam he has left 4th toe swelling, likely dactylitis. No history suggestive of psoriasis. No history suggestive of IBD or uveitis. Labs showed negative RAHUL/RF/CCP. CRP elevated. Clinical picture rather consistent with a seronegative spondyloarthropathy. Symptoms have been adequately managed with meloxicam 7.5 mg daily. Will check labs and x-rays of involved joints. Can continue meloxicam 7.5 mg daily for now Follow-up in 2 weeks Plan I spent 47 minutes reviewing patient's chart, evaluating patient, ordering diagnostic workup, counseling patient and documenting in the chart Orders: Orders C Reactive Protein Today L40.50 - Arthropathic psoriasis, unspecified Erythrocyte Sedimentation Rate Today L40.50 - Arthropathic psoriasis, unspecified Hepatitis A,B,C Profile Today Z11.59 - Encounter for screening for other viral diseases T Spot TB Today Z11.7 - Encounter for testing for latent tuberculosis infection XR hand wrist LT Today L40.50 - Arthropathic psoriasis, unspecified XR lumbar spine 4V min Today L40.50 - Arthropathic psoriasis, unspecified XR sacroiliac joint min 3V Today L40.50 - Arthropathic psoriasis, unspecified XR foot LT min 3V Today L40.50 - Arthropathic psoriasis, unspecified XR foot RT min 3V Today L40.50 - Arthropathic psoriasis, unspecified HLA B27 Today M45.9 - Ankylosing spondylitis of unspecified sites in spine Complete Blood Count Auto Diff Today L40.50 - Arthropathic psoriasis, unspecified Comprehensive Met. Panel Today L40.50 - Arthropathic psoriasis, unspecified Immunofixation Pnl, Serum Today L40.50 - Arthropathic psoriasis, unspecified Protein Electrophoresis, Serum Today L40.50 - Arthropathic psoriasis, unspecified XR hand wrist RT Today L40.50 - Arthropathic psoriasis, unspecified XR ankle LT min 3V Today L40.50 - Arthropathic psoriasis, unspecified XR ankle RT min 3V Today L40.50 - Arthropathic psoriasis, unspecified Coding Level of Care Code New Pt Level 4 (95452) Diagnoses Inflammatory arthritis M19.90
[2023-07-27 12:57] VITALS: BP 110/84; PULSE 78; TEMP 36.6; O2SAT 98; BMI 25.0
== END 2023-07-27 13:40 | disposition home or self-care (01) ==
PROVIDERS: PCP Internal Medicine; Visit Provider Student in an Organized Health Care Education/Training Program
DX: M19.90 Unspecified osteoarthritis, unspecified site (principal)
CPT/HCPCS: 99204

== ENCOUNTER 2023-08-10 09:55 | Outpatient (AMB) | payer MEDICAID, SELFPAY ==
[2023-08-10 10:18] VITALS: BP 116/58; PULSE 87; TEMP 36.4; O2SAT 97; BMI 24.6
--- NOTE | 2023-08-10 10:18 | MHC.OFFVIS ---
Intake Vital Signs 08/10/23 10:18 Height 5 ft 10 in Weight 171 lb 8.314 oz BMI 24.6 BP 116/58 L Blood Pressure Location Rt brachial Position Sitting Pulse 87 Pulse Source Pulse Oximeter Temp 97.6 F Pulse Oximetry (%) 97 Oxygen Delivery Method Room Air Intake Visit Reasons: SpA Intake Note: Pt last seen 07/27/23, presents today for follow up and test results. Reports neck pain. 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 Continues to have neck pain and morning stiffness lasting at least 30 minutes. Initial history: This is a 33-year-old male who presents for evaluation of intermittent joint pain. He stated that the condition started about a year ago with intermittent joint pain, swelling and stiffness, including his hands, feet, right elbow, neck, upper back. He went to the emergency room 1 time when his entire body froze with stiffness and he was prescribed prednisone with dramatic improvement. He had another ER visit and was found to have right olecranon bursitis. This has since resolved. States that he has generalized morning stiffness affecting his upper neck, back and entire body lasting at least 30 minutes. He gets episodes with sausage digits affecting his right thumb. He states that has always been double jointed he never dislocated a joint. He denies any history of any rashes. Denies any GI upset. Denies any fevers. He has been taking meloxicam 7.5 mg daily regularly for past year and feels better overall. He is unaware of any family history of an autoimmune rheumatic disease [facility] Medical History Neck pain Anxiety Elevated C-reactive protein (CRP) Pain in joint, multiple sites Back pain Surgical History No history of previous surgery Family History Mother No problems noted. 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 Review of Systems Const Denies fever(s) and Denies weight gain ENT Reports neck pain Musc Reports back pain, Reports arthralgias, Reports joint swelling, Reports limited range of motion, Reports neck pain and Reports stiffness Skin/Breast Denies rash Physical Exam Vital Signs: Last Vital Signs Temp 97.6 F 08/10/23 10:18 Pulse 87 08/10/23 10:18 BP 116/58 L 08/10/23 10:18 Pulse Ox 97 08/10/23 10:18 Oxygen Delivery Method Room Air 08/10/23 10:18 BMI result Body Mass Index 24.6 Const General: cooperative, healthy appearing and comfortable Nutritional Appearance: average body habitus Orientation/consciousness: patient oriented x3 Limitations: no limitations HEENT Head: Yes normocephalic and Yes atraumatic Mouth: moist mucous membranes Resp Effort & Inspection: normal respiratory effort and able to speak in complete sentences Skin General skin exam: no rashes or lesions noted Neuro General: patient oriented x3 Results Reviewed Results Reviewed: Attending Dr: Wilner Gonzales MD Ordering Physician: Wilner Gonzales MD Date of Service: 07/27/23 Procedure(s): XR sacroiliac joint min 3V Accession Number(s): [id number] cc: Rahul Garcia MD; Wilner Gonzales MD~ EXAMINATION: XR SACROILIAC JOINTS CLINICAL INFORMATION:? Arthropathic psoriasis? COMPARISON:? None available.? TECHNIQUE:? 3 views of the sacroiliac joints FINDINGS: Bones and soft tissues are normal. No fracture. Alignment is anatomic. Sacroiliac joint spaces are well-maintained without erosions or surrounding sclerosis.? XR/XR sacroiliac joint min 3V IMPRESSION: Normal sacroiliac joints. EXAMINATION:? XR LUMBOSACRAL SPINE WITH OBLIQUES CLINICAL INFORMATION:? Arthropathic psoriasis?? COMPARISON:? Lumbar spine x-rays on 01/03/2017?? TECHNIQUE:? AP, both oblique, and lateral views of the lumbar spine. Lateral view of the lumbosacral junction.?? FINDINGS:? The visualized lumbar vertebrae are intact with normal alignment. There is moderate decrease in L5-S1 disc height. Unchanged small sharp anterior superior L2 syndesmophyte is seen. Bilateral oblique x-rays of lumbar spine show intact articular processes with no evidence of spondylolysis. XR/XR lumbar spine 4V min IMPRESSION:? 1. Unchanged sharp anterior superior L2 syndesmophyte. 2. Interval progression to moderate L5-S1 degenerative lumbar disc disease. 3. No fracture or dislocation of lumbar spine is seen. [address] [address] XRay Report? Signed Patient: Sigifredo Padilla MR#: [id number] : 1990 Acct:[id number] Age/Sex: 33 / M ADM Date: 07/27/23 Loc: HO.LAB Attending Dr: Wilner Gonzales MD Ordering Physician: Wilner Gonzales MD Date of Service: 07/27/23 Procedure(s): XR hand wrist RT Accession Number(s): [id number] cc: Rahul Garcia MD; Wilner Gonzales MD~ EXAMINATION:? XR WRIST, RIGHT XR HAND, RIGHT CLINICAL INFORMATION:? Arthropathic psoriasis?? COMPARISON:? Right hand and right wrist x-rays on 01/03/2017?? TECHNIQUE:? PA, lateral, oblique, and scaphoid views of the right wrist and PA, lateral, and oblique views of the right hand FINDINGS:? RIGHT WRIST: The bones and soft tissues are normal. No fracture. Alignment is anatomic. Joint spaces are maintained. No erosions or soft tissue calcifications.?? RIGHT HAND: The bones and soft tissues are normal. No fracture. Alignment is anatomic. Joint spaces are maintained. No erosions or soft tissue calcifications.?? XR/XR hand wrist RT IMPRESSION: Unchanged Normal right hand and wrist. [address] [address] XRay Report? Signed Patient: Sigifredo Padilla MR#: [id number] : 1990 Acct:[id number] Age/Sex: 33 / M ADM Date: 07/27/23 Loc: HO.LAB Attending Dr: Wilner Gonzales MD Ordering Physician: Wilner Gonzales MD Date of Service: 07/27/23 Procedure(s): XR hand wrist LT Accession Number(s): [id number] cc: Rahul Garcia MD; Wilner Gonzales MD~ EXAMINATION:? XR WRIST, LEFT XR HAND, LEFT CLINICAL INFORMATION:? Arthropathic cyst arises?? COMPARISON:? None available.?? TECHNIQUE:? PA, lateral, oblique, and scaphoid views of the left wrist and PA, lateral, and oblique views of the left hand FINDINGS:? LEFT WRIST: The bones and soft tissues are normal. No fracture. Alignment is anatomic. Joint spaces are maintained. No erosions or soft tissue calcifications.?? LEFT HAND: The bones and soft tissues are normal. No fracture. Alignment is anatomic. Joint spaces are maintained. No erosions or soft tissue calcifications.?? XR/XR hand wrist LT IMPRESSION: Normal left hand and wrist. EXAMINATION:? XR FOOT, LEFT CLINICAL INFORMATION:? Arthropathic psoriasis?? COMPARISON:? None available.?? TECHNIQUE:? AP, lateral, and oblique views of the left foot. FINDINGS:? BONES: Bony structures are intact.? There is no focal bone destruction or periosteal reaction seen. JOINTS: Alignment of joints is normal. SOFT TISSUE: Soft tissue is normal.? No radiopaque foreign body or abnormal air collection is seen. XR/XR foot LT min 3V IMPRESSION:? ? 1.? Normal x-rays of left foot.? No fracture or dislocation or signs of osteomyelitis are found. EXAMINATION:? XR FOOT, RIGHT CLINICAL INFORMATION:? Arthropathic cyst arises?? COMPARISON:? None available.?? TECHNIQUE:? AP, lateral, and oblique views of the right foot. FINDINGS:? BONES: Bony structures are intact.? There is no focal bone destruction or periosteal reaction seen. JOINTS: Alignment of joints is normal. SOFT TISSUE: Soft tissue is normal.? No radiopaque foreign body or abnormal air collection is seen. XR/XR foot RT min 3V IMPRESSION:? ? 1.? Normal x-rays of right foot.? No fracture or dislocation or signs of osteomyelitis are found. ? XR/XR thoracic spine 2V IMPRESSION: 1. Mild degenerative changes at C6-C7. 2. Mild multilevel degenerative changes in the thoracic spine. Assessment & Plan Assessment & Plan (1) Inflammatory arthritis: Code(s): M19.90 - Unspecified osteoarthritis, unspecified site Plan: This is a 33-year-old male presents for evaluation of a 1 year history of intermittent joint pain, swelling and stiffness, he has axial and peripheral symptoms. History of olecranon bursitis. On exam he had left 4th toe swelling, likely dactylitis. No history suggestive of psoriasis. No history suggestive of IBD or uveitis. Labs showed negative RAHUL/RF/CCP. CRP elevated. L-spine x-ray showed syndesmophyte. Clinical picture rather consistent with a seronegative spondyloarthropathy such as psoriatic arthritis or ankylosing spondylitis. Symptoms have been fairly well managed with meloxicam 7.5 mg daily. Discussed patient's diagnosis. He continues to have significant morning stiffness of his neck Increase meloxicam to 15 mg daily Follow-up in about 10 weeks. If patient continues to have significant symptoms, will have to add a DMARD Labs before next visit in 10 weeks Plan I spent 27 minutes reviewing patient's chart, evaluating patient, ordering diagnostic workup, counseling patient and documenting in the chart Orders: Orders Complete Blood Count Auto Diff 10 Weeks M19.90 - Unspecified osteoarthritis, unspecified site Comprehensive Met. Panel 10 Weeks M19.90 - Unspecified osteoarthritis, unspecified site C Reactive Protein 10 Weeks M19.90 - Unspecified osteoarthritis, unspecified site Erythrocyte Sedimentation Rate 10 Weeks M19.90 - Unspecified osteoarthritis, unspecified site Medications: Changed From meloxicam 7.5 mg PO QAM To meloxicam 7.5 mg PO BID 60 tabs 2RF Coding Level of Care Code Est Pt Level 4 (16666) Diagnoses Inflammatory arthritis M19.90
== END 2023-08-10 10:50 | disposition home or self-care (01) ==
PROVIDERS: Family Provider Internal Medicine; PCP Internal Medicine; Referring Provider Internal Medicine; Visit Provider Student in an Organized Health Care Education/Training Program
DX: M19.90 Unspecified osteoarthritis, unspecified site (principal)
CPT/HCPCS: 99214

== ENCOUNTER → 2023-08-10 09:55 | Outpatient (BNVA) | payer MEDICAID, SELFPAY | PROVIDERS: PCP Internal Medicine; Visit Provider Student in an Organized Health Care Education/Training Program | DX: M19.90 Unspecified osteoarthritis, unspecified site (principal) | CPT/HCPCS: 99212 ==

== ENCOUNTER 2023-10-14 10:23 | Outpatient (REF) | payer MEDICAID, SELFPAY ==
[2023-10-14 10:33] LABS: MANUAL DIFF FLAG NO
[2023-10-14 10:50] LABS: Basophils Percent Auto 0.5 % (0-2); Eosinophils Absolute Auto 0.1 X10*3/uL (0.0-0.4); Eosinophils Percent Auto 1.2 % (0-4); Hematocrit 41.9 % (42.0-52.0); Hemoglobin 13.8 g/dl (14.0-18.0); Imm Gran Abs Auto 0.03 X10*3/uL (0.00-0.03); Imm Gran Pct Auto 0.4 % (0.0-0.4); Lymphocytes Percent Auto 37.1 % (20-40); Mean Corpuscular HGB Conc 32.9 g/dl (31.0-36.0); Mean Corpuscular Hemoglobin 30.2 pg (27.0-33.0); Mean Corpuscular Volume 91.7 fL (80.0-98.0); Monocytes Absolute Auto 0.6 X10*3/uL (0.1-1.2); Monocytes Percent Auto 7.8 % (2-11); Neutrophils Absolute Auto 4.3 x10*3/uL (2.0-8.3); Platelet Count 291 X10*3/uL (160-400); Red Blood Count 4.57 X10*6/uL (4.60-5.80); Red Cell Distribution Width 13.5 % (11.0-16.0); White Blood Count 8.2 X10*3/uL (4.8-10.8)
[2023-10-14 11:35] LABS: Alanine Aminotransferase 10 U/L (0-40); Albumin Level 4.5 g/dL (3.5-5.0); Alkaline Phosphatase 75 U/L (39-117); Anion Gap 12 (12-20); Aspartate Amino Transferase 14 U/L (5-37); Bilirubin Total 0.2 mg/dL (0.0-1.0); Blood Urea Nitrogen 11 mg/dL (9-16); C Reactive Protein 0.11 mg/dL (< or = 0.50); Calcium 9.3 mg/dL (8.4-10.2); Carbon Dioxide 27 mmol/L (22-29); Chloride 104 mmol/L (96-108); Estimated Glomerular Filt Rate > 60; Glucose Random 98 mg/dL (60-115); Potassium 4.4 mmol/L (3.3-5.1); Sodium 139 mmol/L (135-145); Total Protein 7.3 g/dL (6.5-8.0)
[2023-10-14 11:39] LABS: Erythrocyte Sedimentation Rate 9 MM/HR (0-15)
== END 2023-10-14 10:24 | disposition home or self-care (01) ==
LOC: HO.LAB 10:23
PROVIDERS: PCP Student in an Organized Health Care Education/Training Program; Visit Provider Student in an Organized Health Care Education/Training Program
DX: M19.90 Unspecified osteoarthritis, unspecified site (principal)
CPT/HCPCS: 36415; 80053; 85025; 85652; 86140

== ENCOUNTER 2023-10-17 09:31 | Outpatient (AMB) | payer MEDICAID, SELFPAY ==
[2023-10-17 09:35] VITALS: BP 108/62; PULSE 88; O2SAT 97; BMI 23.9
--- NOTE | 2023-10-17 09:35 | MHC.OFFVIS ---
Intake Vital Signs 10/17/23 09:35 Height 5 ft 10 in Weight 166 lb 7.184 oz BMI 23.9 BP 108/62 Blood Pressure Location Lt brachial Position Sitting Pulse 88 Pulse Source Pulse Oximeter Pulse Oximetry (%) 97 Oxygen Delivery Method Room Air Intake Visit Reasons: Intake Note: Patient last seen 08/10/23 presents today for follow up and test results. 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 Patient states that he was taking meloxicam 15 mg daily regularly till about a month ago. He was feeling great with no pain in the fingers, toes, neck. He had a baby. And over last month, he forgot to pick and shovel man the prescription. He has been having recurrent neck stiffness and intermittent pain in his hands. He could not think of any side effects related to meloxicam Initial history: This is a 33-year-old male who presents for evaluation of intermittent joint pain. He stated that the condition started about a year ago with intermittent joint pain, swelling and stiffness, including his hands, feet, right elbow, neck, upper back. He went to the emergency room 1 time when his entire body froze with stiffness and he was prescribed prednisone with dramatic improvement. He had another ER visit and was found to have right olecranon bursitis. This has since resolved. States that he has generalized morning stiffness affecting his upper neck, back and entire body lasting at least 30 minutes. He gets episodes with sausage digits affecting his right thumb. He states that has always been double jointed he never dislocated a joint. He denies any history of any rashes. Denies any GI upset. Denies any fevers. He has been taking meloxicam 7.5 mg daily regularly for past year and feels better overall. He is unaware of any family history of an autoimmune rheumatic disease [facility] Medical History Neck pain Anxiety Elevated C-reactive protein (CRP) Pain in joint, multiple sites Back pain Surgical History No history of previous surgery Family History Mother No problems noted. 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 [employer] Reports neck pain Musc Reports back pain, Reports arthralgias, Reports limited range of motion, Reports neck pain and Reports stiffness Physical Exam Vital Signs: Last Vital Signs Pulse 88 10/17/23 09:35 BP 108/62 10/17/23 09:35 Pulse Ox 97 10/17/23 09:35 Oxygen Delivery Method Room Air 10/17/23 09:35 BMI result Body Mass Index 23.9 Const General: cooperative, healthy appearing and comfortable Nutritional Appearance: average body habitus Orientation/consciousness: patient oriented x3 Limitations: no limitations HEENT Head: Yes normocephalic and Yes atraumatic Mouth: moist mucous membranes Resp Effort & Inspection: normal respiratory effort and able to speak in complete sentences Auscultation: clear to auscultation bilaterally Cardio Rate: regular rate Rhythm: regular rhythm Skin General skin exam: no rashes or lesions noted Neuro General: patient oriented x3 Extrem Other: No active synovitis both hands and wrists No nail pitting Normal nailfold capillaroscopy No MTP tenderness today Benjy test 10-15 cm Negative straight leg raise test bilaterally Negative LAZ test bilaterally Patient able to put both palms on the floor while standing, knee straight Bilateral thumb hypermobility Results Reviewed Results Reviewed: Attending Dr: Wilner Gonzales MD Ordering Physician: Wilner Gonzales MD Date of Service: 07/27/23 Procedure(s): XR sacroiliac joint min 3V Accession Number(s): [id number] cc: Faye Garcia MD; Wilner Gonzales MD~ EXAMINATION: XR SACROILIAC JOINTS CLINICAL INFORMATION:? Arthropathic psoriasis? COMPARISON:? None available.? TECHNIQUE:? 3 views of the sacroiliac joints FINDINGS: Bones and soft tissues are normal. No fracture. Alignment is anatomic. Sacroiliac joint spaces are well-maintained without erosions or surrounding sclerosis.? XR/XR sacroiliac joint min 3V IMPRESSION: Normal sacroiliac joints. EXAMINATION:? XR LUMBOSACRAL SPINE WITH OBLIQUES CLINICAL INFORMATION:? Arthropathic psoriasis?? COMPARISON:? Lumbar spine x-rays on 01/03/2017?? TECHNIQUE:? AP, both oblique, and lateral views of the lumbar spine. Lateral view of the lumbosacral junction.?? FINDINGS:? The visualized lumbar vertebrae are intact with normal alignment. There is moderate decrease in L5-S1 disc height. Unchanged small sharp anterior superior L2 syndesmophyte is seen. Bilateral oblique x-rays of lumbar spine show intact articular processes with no evidence of spondylolysis. XR/XR lumbar spine 4V min IMPRESSION:? 1. Unchanged sharp anterior superior L2 syndesmophyte. 2. Interval progression to moderate L5-S1 degenerative lumbar disc disease. 3. No fracture or dislocation of lumbar spine is seen. [place] [address] XRay Report? Signed Patient: Sigifredo Padilla MR#: [id number] : 1990 Acct:[id number] Age/Sex: 33 / M ADM Date: 07/27/23 Loc: HO.LAB Attending Dr: Wilner Gonzales MD Ordering Physician: Wilner Gonzales MD Date of Service: 07/27/23 Procedure(s): XR hand wrist RT Accession Number(s): [id number] cc: Faye Garcia MD; Wilner Gonzales MD~ EXAMINATION:? XR WRIST, RIGHT XR HAND, RIGHT CLINICAL INFORMATION:? Arthropathic psoriasis?? COMPARISON:? Right hand and right wrist x-rays on 01/03/2017?? TECHNIQUE:? PA, lateral, oblique, and scaphoid views of the right wrist and PA, lateral, and oblique views of the right hand FINDINGS:? RIGHT WRIST: The bones and soft tissues are normal. No fracture. Alignment is anatomic. Joint spaces are maintained. No erosions or soft tissue calcifications.?? RIGHT HAND: The bones and soft tissues are normal. No fracture. Alignment is anatomic. Joint spaces are maintained. No erosions or soft tissue calcifications.?? XR/XR hand wrist RT IMPRESSION: Unchanged Normal right hand and wrist. [address] [address] XRay Report? Signed Patient: Sigifredo Padilla MR#: [id number] : 1990 Acct:[id number] Age/Sex: 33 / M ADM Date: 07/27/23 Loc: HO.LAB Attending Dr: Wilner Gonzales MD Ordering Physician: Wilner Gonzales MD Date of Service: 07/27/23 Procedure(s): XR hand wrist LT Accession Number(s): [id number] cc: Faye Garcia MD; Wilner Gonzales MD~ EXAMINATION:? XR WRIST, LEFT XR HAND, LEFT CLINICAL INFORMATION:? Arthropathic cyst arises?? COMPARISON:? None available.?? TECHNIQUE:? PA, lateral, oblique, and scaphoid views of the left wrist and PA, lateral, and oblique views of the left hand FINDINGS:? LEFT WRIST: The bones and soft tissues are normal. No fracture. Alignment is anatomic. Joint spaces are maintained. No erosions or soft tissue calcifications.?? LEFT HAND: The bones and soft tissues are normal. No fracture. Alignment is anatomic. Joint spaces are maintained. No erosions or soft tissue calcifications.?? XR/XR hand wrist LT IMPRESSION: Normal left hand and wrist. EXAMINATION:? XR FOOT, LEFT CLINICAL INFORMATION:? Arthropathic psoriasis?? COMPARISON:? None available.?? TECHNIQUE:? AP, lateral, and oblique views of the left foot. FINDINGS:? BONES: Bony structures are intact.? There is no focal bone destruction or periosteal reaction seen. JOINTS: Alignment of joints is normal. SOFT TISSUE: Soft tissue is normal.? No radiopaque foreign body or abnormal air collection is seen. XR/XR foot LT min 3V IMPRESSION:? ? 1.? Normal x-rays of left foot.? No fracture or dislocation or signs of osteomyelitis are found. EXAMINATION:? XR FOOT, RIGHT CLINICAL INFORMATION:? Arthropathic cyst arises?? COMPARISON:? None available.?? TECHNIQUE:? AP, lateral, and oblique views of the right foot. FINDINGS:? BONES: Bony structures are intact.? There is no focal bone destruction or periosteal reaction seen. JOINTS: Alignment of joints is normal. SOFT TISSUE: Soft tissue is normal.? No radiopaque foreign body or abnormal air collection is seen. XR/XR foot RT min 3V IMPRESSION:? ? 1.? Normal x-rays of right foot.? No fracture or dislocation or signs of osteomyelitis are found. ? XR/XR thoracic spine 2V IMPRESSION: 1. Mild degenerative changes at C6-C7. 2. Mild multilevel degenerative changes in the thoracic spine. Assessment & Plan Assessment & Plan (1) Inflammatory arthritis: Code(s): M19.90 - Unspecified osteoarthritis, unspecified site Plan: This is a 33-year-old male presents for evaluation of a 1 year history of intermittent joint pain, swelling and stiffness, he has axial and peripheral symptoms. History of olecranon bursitis. On exam he had left 4th toe swelling, likely dactylitis. No history suggestive of psoriasis. No history suggestive of IBD or uveitis. Labs showed negative FAYE/RF/CCP. CRP elevated. L-spine x-ray showed syndesmophyte. Clinical picture rather consistent with a seronegative spondyloarthropathy such as psoriatic arthritis or ankylosing spondylitis. Patient's symptoms were very well managed with meloxicam 15 mg daily, patient ran out about a month ago and is having recurrent axial and peripheral arthritis symptoms. He has not had any side effects with meloxicam. Restart meloxicam as prescribed. 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 Panel 3 Months M1. - Unspecified osteoarthritis, unspecified site C Reactive Protein 3 Months M1.90 - Unspecified osteoarthritis, unspecified site Erythrocyte Sedimentation Rate 3 Months M19.90 - Unspecified osteoarthritis, unspecified site Coding Level of Care Code Est Pt Level 4 (87377) Diagnoses Inflammatory arthritis M19.90 NSAID long-term use Z79.1
== END 2023-10-17 10:10 | disposition home or self-care (01) ==
PROVIDERS: PCP Internal Medicine; Visit Provider Student in an Organized Health Care Education/Training Program
DX: M19.90 Unspecified osteoarthritis, unspecified site (principal); Z79.1 Long term (current) use of non-steroidal anti-inflammatories (NSAID)
CPT/HCPCS: 99214

== ENCOUNTER → 2023-10-17 09:31 | Outpatient (BNVA) | payer MEDICAID, SELFPAY | PROVIDERS: PCP Internal Medicine; Visit Provider Student in an Organized Health Care Education/Training Program | DX: M19.90 Unspecified osteoarthritis, unspecified site (principal); M79.89 Other specified soft tissue disorders; Z79.1 Long term (current) use of non-steroidal anti-inflammatories (NSAID) | CPT/HCPCS: 99212 ==

== ENCOUNTER 2023-12-20 11:31 | Outpatient (REF) | payer MEDICAID, SELFPAY ==
--- NOTE | ~2023-12-20 | XR_ITS ---
EXAMINATION: XR KNEE, RIGHT CLINICAL INFORMATION: Injured right knee pain and swelling since last night. Patient stated he twisted his right knee while trying to avoid hitting something. Patient could not fully extend his leg for images per technologist statement, limiting evaluation. COMPARISON: 01/03/2017. TECHNIQUE: AP, lateral and 2 oblique views of the right knee. FINDINGS: The joint spaces are preserved. Bone mineralization is normal. Moderate suprapatellar effusion. Alignment preserved. XR/XR knee RT 4V IMPRESSION: 1. Moderate suprapatellar effusion. 2. Bony alignment and joint spaces are preserved. This study was presented today, December 20, 2023 for interpretation. Stat results provided at this time as requested by referring provider.
== END 2023-12-20 11:32 | disposition home or self-care (01) ==
LOC: HO.HHCX 11:31
PROVIDERS: Visit Provider Student in an Organized Health Care Education/Training Program
DX: S89.91XA Unspecified injury of right lower leg, initial encounter (principal)
CPT/HCPCS: 73564

== ENCOUNTER 2024-01-16 09:07 | Outpatient (REF) | payer MEDICAID, SELFPAY ==
[2024-01-16 09:17] LABS: MANUAL DIFF FLAG NO
[2024-01-16 09:29] LABS: Basophils Absolute Auto 0.1 X10*3/uL (0.0-0.2); Basophils Percent Auto 0.6 % (0-2); Eosinophils Absolute Auto 0.1 X10*3/uL (0.0-0.4); Eosinophils Percent Auto 1.3 % (0-4); Hematocrit 41.4 % (42.0-52.0); Hemoglobin 13.9 g/dl (14.0-18.0); Imm Gran Abs Auto 0.03 X10*3/uL (0.00-0.03); Imm Gran Pct Auto 0.4 % (0.0-0.4); Lymphocytes Absolute Auto 3.1 X10*3/uL (1.2-4.9); Lymphocytes Percent Auto 36.5 % (20-40); Mean Corpuscular HGB Conc 33.6 g/dl (31.0-36.0); Mean Corpuscular Hemoglobin 30.5 pg (27.0-33.0); Mean Corpuscular Volume 90.8 fL (80.0-98.0); Mean Platelet Volume 9.7 fL (9.4-12.4); Monocytes Absolute Auto 0.8 X10*3/uL (0.1-1.2); Monocytes Percent Auto 9.9 % (2-11); Neutrophils Absolute Auto 4.3 x10*3/uL (2.0-8.3); Neutrophils Percent Auto 51.3 % (45-73); Platelet Count 308 X10*3/uL (160-400); Red Blood Count 4.56 X10*6/uL (4.60-5.80); Red Cell Distribution Width 13.8 % (11.0-16.0); White Blood Count 8.4 X10*3/uL (4.8-10.8)
[2024-01-16 10:00] LABS: Alanine Aminotransferase 13 U/L (0-40); Albumin Level 4.5 g/dL (3.5-5.0); Alkaline Phosphatase 83 U/L (39-117); Anion Gap 12 (12-20); Aspartate Amino Transferase 19 U/L (5-37); Bilirubin Total 0.2 mg/dL (0.0-1.0); Blood Urea Nitrogen 9 mg/dL (9-16); C Reactive Protein 0.56 mg/dL (< or = 0.50); Calcium 9.7 mg/dL (8.4-10.2); Carbon Dioxide 30 mmol/L (22-29); Chloride 105 mmol/L (96-108); Estimated Glomerular Filt Rate > 60; Glucose Random 66 mg/dL (60-115); Potassium 4.7 mmol/L (3.3-5.1); Sodium 142 mmol/L (135-145); Total Protein 7.6 g/dL (6.5-8.0)
[2024-01-16 10:10] LABS: Erythrocyte Sedimentation Rate 7 MM/HR (0-15)
== END 2024-01-16 09:08 | disposition home or self-care (01) ==
LOC: HO.LAB 09:07
PROVIDERS: PCP Student in an Organized Health Care Education/Training Program; Visit Provider Student in an Organized Health Care Education/Training Program
DX: M19.90 Unspecified osteoarthritis, unspecified site (principal)
CPT/HCPCS: 36415; 80053; 85025; 85652; 86140

== ENCOUNTER 2024-01-17 09:57 | Outpatient (AMB) | payer MEDICAID, SELFPAY ==
--- NOTE | 2024-01-17 10:05 | A.OFFVIS_ITS ---
Vital Signs 01/17/24 10:06 Height 5 ft 10 in Weight 158 lb 11.725 oz BMI 22.8 BP 130/74 Blood Pressure Location Rt brachial Position Sitting Pulse 117 H Pulse Source Pulse Oximeter Pulse Oximetry (%) 97 Oxygen Delivery Method Room Air Intake Visit Reasons: Accompanied by: Self / Same As Patient Allergies Penicillins [PENICILLINS] Allergy (Unknown, Verified 01/17/24 10:05) UNKNOWN Medication List - Last Reconciled 01/17/24 by Wilner Gonzales MD dextroamphetamine-amphetamine 20 mg ER (Adderall XR) 1 cap PO DAILY diclofenac sodium 1% 2 grams topical BID PRN lidocaine 5% patches topical PRN meloxicam 7.5 mg PO BID nicotine 1 patch topical QAM HPI Comments Details: 33-year-old male with seronegative spondyloarthropathy returns for follow-up. He is on meloxicam 15 mg p.o. daily. Tolerating except for bad taste. Denies any GI upset. States that he is doing well overall. He gets intermittent swelling of his fingers but it is rare. Does not take the meloxicam for a few days he stiffens up. He denies any significant neck or back pain. Denies any skin rashes. About a month ago he twisted his right knee, right knee x-ray was done which showed a suprapatellar effusion. A right knee MRI was ordered but has not been completed yet. Initial history: This is a 33-year-old male who presents for evaluation of inte rmittent joint pain. He stated that the condition started about a year ago with intermittent joint pain, swelling and stiffness, including his hands, feet, right elbow, neck, upper back. He went to the emergency room 1 time when his entire body froze with stiffness and he was prescribed prednisone with dramatic improvement. He had another ER visit and was found to have right olecranon bursitis. This has since resolved. States that he has generalized morning stiffness affecting his upper neck, back and entire body lasting at least 30 minutes. He gets episodes with sausage digits affecting his right thumb. He states that has always been double jointed he never dislocated a joint. He denies any history of any rashes. Denies any GI upset. Denies any fevers. He has been taking meloxicam 7.5 mg daily regularly for past year and feels better overall. He is unaware of any family history of an autoimmune rheumatic disease [facility] Medical History Neck pain Anxiety Elevated C-reactive protein (CRP) Pain in joint, multiple sites Back pain Surgical History No history of previous surgery Family History Mother No problems noted. 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 Review of Systems [facility] Reports arthralgias and Reports joint swelling Physical Exam Vital Signs: Last Vital Signs Pulse 117 H 01/17/24 10:06 BP 130/74 01/17/24 10:06 Pulse Ox 97 01/17/24 10:06 Oxygen Delivery Method Room Air 01/17/24 10:06 BMI result Body Mass Index 22.8 Const General: cooperative, healthy appearing and comfortable Nutritional Appearance: average body habitus Orientation/consciousness: patient oriented x3 Limitations: no limitations HEENT Head: Yes normocephalic and Yes atraumatic Mouth: moist mucous membranes Resp Effort & Inspection: normal respiratory effort and able to speak in complete sentences Auscultation: clear to auscultation bilaterally Cardio Rate: regular rate Rhythm: regular rhythm Skin General skin exam: no rashes or lesions noted Neuro General: patient oriented x3 Extrem Other: No active synovitis both hands and wrists No nail pitting Normal nailfold capillaroscopy No MTP tenderness today Benjy test 10-15 cm Negative straight leg raise test bilaterally Negative LAZ test bilaterally Patient able to put both palms on the floor while standing, knee straight Bilateral thumb hypermobility Results Reviewed Results Reviewed: Attending Dr: Wilner Gonzales MD Ordering Physician: Wilner Gonzales MD Date of Service: 07/27/23 Procedure(s): XR sacroiliac joint min 3V Accession Number(s): [id number] cc: Faye Garcia MD; Wilner Gonzales MD~ EXAMINATION: XR SACROILIAC JOINTS CLINICAL INFORMATION:? Arthropathic psoriasis? COMPARISON:? None available.? TECHNIQUE:? 3 views of the sacroiliac joints FINDINGS: Bones and soft tissues are normal. No fracture. Alignment is anatomic. Sacroiliac joint spaces are well-maintained without erosions or surrounding sclerosis.? XR/XR sacroiliac joint min 3V IMPRESSION: Normal sacroiliac joints. EXAMINATION:? XR LUMBOSACRAL SPINE WITH OBLIQUES CLINICAL INFORMATION:? Arthropathic psoriasis?? COMPARISON:? Lumbar spine x-rays on 01/03/2017?? TECHNIQUE:? AP, both oblique, and lateral views of the lumbar spine. Lateral view of the lumbosacral junction.?? FINDINGS:? The visualized lumbar vertebrae are intact with normal alignment. There is moderate decrease in L5-S1 disc height. Unchanged small sharp anterior superior L2 syndesmophyte is seen. Bilateral oblique x-rays of lumbar spine show intact articular processes with no evidence of spondylolysis. XR/XR lumbar spine 4V min IMPRESSION:? 1. Unchanged sharp anterior superior L2 syndesmophyte. 2. Interval progression to moderate L5-S1 degenerative lumbar disc disease. 3. No fracture or dislocation of lumbar spine is seen. [place] [address] XRay Report? Signed Patient: Sigifredo Padilla MR#: [id number] : 1990 Acct:[id number] Age/Sex: 33 / M ADM Date: 07/27/23 Loc: HO.LAB Attending Dr: Wilner Gonzales MD Ordering Physician: Wilner Gonzales MD Date of Service: 07/27/23 Procedure(s): XR hand wrist RT Accession Number(s): [id number] cc: Faye Garcia MD; Wilner Gonzales MD~ EXAMINATION:? XR WRIST, RIGHT XR HAND, RIGHT CLINICAL INFORMATION:? Arthropathic psoriasis?? COMPARISON:? Right hand and right wrist x-rays on 01/03/2017?? TECHNIQUE:? PA, lateral, oblique, and scaphoid views of the right wrist and PA, lateral, and oblique views of the right hand FINDINGS:? RIGHT WRIST: The bones and soft tissues are normal. No fracture. Alignment is anatomic. Joint spaces are maintained. No erosions or soft tissue calcifications.?? RIGHT HAND: The bones and soft tissues are normal. No fracture. Alignment is anatomic. Joint spaces are maintained. No erosions or soft tissue calcifications.?? XR/XR hand wrist RT IMPRESSION: Unchanged Normal right hand and wrist. [address] [address] XRay Report? Signed Patient: Sigifredo Padilla MR#: [id number] : 1990 Acct:[id number] Age/Sex: 33 / M ADM Date: 07/27/23 Loc: HO.LAB Attending Dr: Wilner Gonzales MD Ordering Physician: Wilner Gonzales MD Date of Service: 07/27/23 Procedure(s): XR hand wrist LT Accession Number(s): [id number] cc: Faye Garcia MD; Wilner Gonzales MD~ EXAMINATION:? XR WRIST, LEFT XR HAND, LEFT CLINICAL INFORMATION:? Arthropathic cyst arises?? COMPARISON:? None available.?? TECHNIQUE:? PA, lateral, oblique, and scaphoid views of the left wrist and PA, lateral, and oblique views of the left hand FINDINGS:? LEFT WRIST: The bones and soft tissues are normal. No fracture. Alignment is anatomic. Joint spaces are maintained. No erosions or soft tissue calcifications.?? LEFT HAND: The bones and soft tissues are normal. No fracture. Alignment is anatomic. Joint spaces are maintained. No erosions or soft tissue calcifications.?? XR/XR hand wrist LT IMPRESSION: Normal left hand and wrist. EXAMINATION:? XR FOOT, LEFT CLINICAL INFORMATION:? Arthropathic psoriasis?? COMPARISON:? None available.?? TECHNIQUE:? AP, lateral, and oblique views of the left foot. FINDINGS:? BONES: Bony structures are intact.? There is no focal bone destruction or periosteal reaction seen. JOINTS: Alignment of joints is normal. SOFT TISSUE: Soft tissue is normal.? No radiopaque foreign body or abnormal air collection is seen. XR/XR foot LT min 3V IMPRESSION:? ? 1.? Normal x-rays of left foot.? No fracture or dislocation or signs of osteomyelitis are found. EXAMINATION:? XR FOOT, RIGHT CLINICAL INFORMATION:? Arthropathic cyst arises?? COMPARISON:? None available.?? TECHNIQUE:? AP, lateral, and oblique views of the right foot. FINDINGS:? BONES: Bony structures are intact.? There is no focal bone destruction or periosteal reaction seen. JOINTS: Alignment of joints is normal. SOFT TISSUE: Soft tissue is normal.? No radiopaque foreign body or abnormal air collection is seen. XR/XR foot RT min 3V IMPRESSION:? ? 1.? Normal x-rays of right foot.? No fracture or dislocation or signs of osteomyelitis are found. ? XR/XR thoracic spine 2V IMPRESSION: 1. Mild degenerative changes at C6-C7. 2. Mild multilevel degenerative changes in the thoracic spine. Assessment & Plan Assessment & Plan (1) Inflammatory arthritis: Code(s): M19.90 - Unspecified osteoarthritis, unspecified site Category: Medical Plan: This is a 33-year-old male presents for evaluation of a 1 year history of intermittent joint pain, swelling and stiffness, he has axial and peripheral symptoms. History of olecranon bursitis. On initial exam he had left 4th toe swelling, likely dactylitis. No history suggestive of psoriasis. No history suggestive of IBD or uveitis. Labs showed negative FAYE/RF/CCP/HLA B-27. CRP elevated. L-spine x-ray showed syndesmophyte. Clinical picture rather consistent with a seronegative spondyloarthropathy such as psoriatic arthritis or ankylosing spondylitis. Overall patient's symptoms are well controlled with meloxicam 15 mg p.o. daily. Only minimally elevated inflammatory markers. No need to add any further DMARDs at this point. 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 Will continue to monitor patient. Plan I spent 27 minutes reviewing patient's chart, evaluating patient, ordering diagnostic workup, counseling patient and documenting in the chart Orders: Orders Complete Blood Count Auto Diff 4 Months M19.90 - Unspecified osteoarthritis, unspecified site C Reactive Protein 4 Months M19.90 - Unspecified osteoarthritis, unspecified site Erythrocyte Sedimentation Rate 4 Months M19.90 - Unspecified osteoarthritis, unspecified site Comprehensive Met. Panel 4 Months M19.90 - Unspecified osteoarthritis, unspecified site Coding Level of Care Code Est Pt Level 4 (66088) Diagnoses Inflammatory arthritis M19.90 NSAID long-term use Z79.1
[2024-01-17 10:06] VITALS: BP 130/74; PULSE 117; O2SAT 97; BMI 22.8
== END 2024-01-17 10:28 | disposition home or self-care (01) ==
PROVIDERS: PCP Internal Medicine; Referring Provider Internal Medicine; Visit Provider Student in an Organized Health Care Education/Training Program
DX: M19.90 Unspecified osteoarthritis, unspecified site (principal); Z79.1 Long term (current) use of non-steroidal anti-inflammatories (NSAID)
CPT/HCPCS: 99214

== ENCOUNTER → 2024-01-17 09:57 | Outpatient (BNVA) | payer MEDICAID, SELFPAY | PROVIDERS: PCP Internal Medicine; Visit Provider Student in an Organized Health Care Education/Training Program | DX: M19.90 Unspecified osteoarthritis, unspecified site (principal); Z79.1 Long term (current) use of non-steroidal anti-inflammatories (NSAID) | CPT/HCPCS: 99212 ==

== ENCOUNTER 2024-02-03 18:36 | Outpatient (REF) | payer MEDICAID, SELFPAY ==
--- NOTE | ~2024-02-03 | MR_ITS ---
EXAMINATION: MR KNEE WITHOUT CONTRAST, RIGHT CLINICAL INFORMATION: Right knee pain and swelling. COMPARISON: Radiographs 12/20/2023. TECHNIQUE: MRI of the knee without contrast was performed using routine sequences on a high-field scanner. FINDINGS: MENISCI: Medial Meniscus: There is a vertical longitudinal tear at the far periphery at the junction of the posterior horn and body and a tear of the meniscofemoral ligament at the femoral attachment. Lateral Meniscus: Intact LIGAMENTS: Cruciate: Complete or near complete tear of the anterior cruciate ligament at the femoral attachment. The posterior cruciate ligament is intact. Collateral: Intact. EXTENSOR MECHANISM: Intact. ARTICULAR CARTILAGE/BONE: Patellofemoral Compartment: Normal. Medial Compartment: Subtle, subacute bone bruise at the posterior aspect of the tibia. No articular cartilage defect. Lateral Compartment: Small impaction fracture at the posterior aspect of the tibia with mild residual marrow edema. JOINT FLUID AND BURSAE: Trace joint effusion. MR/MR knee RT wo con IMPRESSION: 1. Subacute complete or near complete tear of the anterior cruciate ligament at the femoral attachment. 2. Small subacute impaction fracture at the posterior aspect of the lateral tibia with mild residual marrow edema. Subtle bone bruise at the posterior aspect of the medial tibia. Trace joint effusion. 3. There is a vertical longitudinal tear at the far periphery of the medial meniscus at the junction of the posterior horn and body and a tear of the meniscofemoral ligament at the femoral attachment.
== END 2024-02-03 18:37 | disposition home or self-care (01) ==
LOC: HO.MRI 18:36
PROVIDERS: PCP Student in an Organized Health Care Education/Training Program; Visit Provider Student in an Organized Health Care Education/Training Program
DX: S89.91XA Unspecified injury of right lower leg, initial encounter (principal)
CPT/HCPCS: 73721

== ENCOUNTER 2024-02-09 16:08 | Emergency (ER) | payer MEDICAID, SELFPAY ==
[2024-02-09 16:20] VITALS: BP 142/86; PULSE 81; RESP 16; TEMP 36.4; O2SAT 99; BMI 21.5
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
[2024-02-09 16:40] VITALS: BP 142/86; PULSE 81; RESP 16; TEMP 36.4; O2SAT 99
== END 2024-02-09 16:42 | disposition home or self-care (01) ==
PROVIDERS: Emergency Provider Emergency Medicine Emergency Medical Services; PCP Internal Medicine
DX: M79.604 Pain in right leg (principal); S83.511D Sprain of anterior cruciate ligament of right knee, subsequent encounter; S83.241D Other tear of medial meniscus, current injury, right knee, subsequent encounter; X50.1XXD Overexertion from prolonged static or awkward postures, subsequent encounter
CPT/HCPCS: 99282

== ENCOUNTER 2024-02-17 13:34 | Outpatient (AMB) | payer MEDICAID, SELFPAY ==
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
== END 2024-02-17 14:01 | disposition home or self-care (01) ==
PROVIDERS: PCP Internal Medicine; Visit Provider Physician Assistant
DX: S83.511A Sprain of anterior cruciate ligament of right knee, initial encounter (principal)
CPT/HCPCS: 99203

== ENCOUNTER → 2024-02-17 13:34 | Outpatient (BNVA) | payer MEDICAID, SELFPAY | PROVIDERS: PCP Internal Medicine; Visit Provider Physician Assistant | DX: M25.561 Pain in right knee (principal); M25.361 Other instability, right knee; S83.511D Sprain of anterior cruciate ligament of right knee, subsequent encounter; X58.XXXD Exposure to other specified factors, subsequent encounter | CPT/HCPCS: 99212 ==

== ENCOUNTER 2024-04-06 11:53 | Outpatient (AMB) | payer MEDICAID, SELFPAY ==
[2024-04-06 12:40] VITALS: BMI 21.5
--- NOTE | 2024-04-06 12:40 | MHC.OFFVIS ---
Vital Signs 04/06/24 12:40 Height 5 ft 10 in Weight 150 lb BMI 21.5 Intake Visit Reasons: OV ACL right knee tear discuss surgery Allergies Penicillins [PENICILLINS] Allergy (Unknown, Verified 04/06/24 12:41) UNKNOWN HPI HPI OV ACL right knee tear discuss surgery: Details: Sigifredo is a 33 year old male who presents today for a follow up of his right knee. He would like to discuss surgery today. He says his only concern is waiting too long and messing up his left knee. He was playing with his daughter and moved awkwardly and injured his right knee approximately 8 months ago. He did have an MRI which showed a complete ACL tear. He has had pain and instability and difficulty with sleeping. He has not been doing any rehab. He has no range of motion concerns. 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 [facility] Medical History Neck pain Anxiety Elevated C-reactive protein (CRP) Pain in joint, multiple sites Back pain Surgical History No history of previous surgery Family History Mother No problems noted. 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 No effusion Full range of motion Quad atrophy and weak but able to straight leg raise Results Reviewed Results Reviewed: MR/MR knee RT wo con IMPRESSION: 1. Subacute complete or near complete tear of the anterior cruciate ligament at the femoral attachment. 2. Small subacute impaction fracture at the posterior aspect of the lateral tibia with mild residual marrow edema. Subtle bone bruise at the posterior aspect of the medial tibia. Trace joint effusion. 3. There is a vertical longitudinal tear at the far periphery of the medial meniscus at the junction of the posterior horn and body and a tear of the meniscofemoral ligament at the femoral attachment. Assessment & Plan Assessment & Plan (1) Complete tear of anterior cruciate ligament of right knee: Code(s): S83.511A - Sprain of anterior cruciate ligament of right knee, initial encounter Category: Medical Qualifiers: Encounter type: initial encounter Qualified Code(s): S83.511A - Sprain of anterior cruciate ligament of right knee, initial encounter Plan: This is a 33-year-old gentleman with a right ACL rupture. He has some symptoms that suggest meniscal injury but the MRI does not show convincing evidence of this. He feels he may have hurt his knee in the past 2 months. I recommend ACL reconstruction. We discussed the options of allograft versus autograft as well as the importance of postop rehabilitation. I think given his quad atrophy I would recommend some preoperative physical therapy. He is amenable to this and would like to proceed forward with ACL reconstruction with allograft. I did discuss that there is the possibility of meniscal injury that may require partial meniscectomy versus repair. Orders: Orders PT Evaluation and Treatment Today S83.511A - Sprain of anterior cruciate ligament of right knee, initial encounter Coding Level of Care Code Est Pt Level 4 (42601) Diagnoses Complete tear of anterior cruciate ligament of right knee, initial encounter S83.511A Encounter type: initial encounter
== END 2024-04-06 14:25 | disposition home or self-care (01) ==
PROVIDERS: PCP Internal Medicine; Referring Provider Internal Medicine; Visit Provider Orthopaedic Surgery
DX: S83.511A Sprain of anterior cruciate ligament of right knee, initial encounter (principal)
CPT/HCPCS: 99214

== ENCOUNTER → 2024-04-06 11:53 | Outpatient (BNVA) | payer MEDICAID, SELFPAY | PROVIDERS: PCP Internal Medicine; Visit Provider Orthopaedic Surgery | DX: M25.561 Pain in right knee (principal); M25.361 Other instability, right knee; S83.511D Sprain of anterior cruciate ligament of right knee, subsequent encounter; X58.XXXD Exposure to other specified factors, subsequent encounter | CPT/HCPCS: 99212 ==

== ENCOUNTER 2024-04-18 10:00 | Outpatient (RCR) | payer MEDICAID, SELFPAY ==
--- NOTE | 2024-04-12 15:16 | MHC.PT.EP ---
[facility] [place] Office [place] Office [place] Office [address] [place] Ugalde [address] [phone] F: [phone] F: [phone] F: [phone] F: [phone] Physical Therapy Plan of Care Date of Evaluation: 04/12/24 Date of Surgery: TBD Diagnosis: COMPLETE TEAR OF ACL, RIGHT KNEE-> QUAD ACTIV, PRE-OP CONDITIONING Assessment: 33 YO MALE W Rt ACL TEAR W PLANS FOR REPAIR, REF TO PT FOR PRE-OP CONDITIONING AND QUAD ACTIVATION. 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 HE IS MOTIVATED FOR PT- OBJECTIVELY, THE Pt HAS TERMINAL KNEE EXT DEFICITS, HYPERMOBILE JtS, DECR QUAD AND GLUTE EFFICIENCY, AND FLUCTUATING PAIN IN Rt KNEE. HE DEMON SLS Rt x 15 SEC W INCR EFFORT Rt > Lt LE AND IS LIMITED W FAST PACED WALKING, BENDING, PROLONGED STANDING, AND PHYSICALLY CHALLENGING ADLs . HE IS MOTIVATED FOR PRE-OP PT AND EDUC RE ALLOGRAFT ACL RECONSTRUCTION POST-OP COURSE. 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 Manual therapy to restore motion and function. Therapeutic exercise to improve strength and flexibility. Neuromuscular re-education for posture and balance. Therapeutic activities to return to functional activities of daily living. Electronically signed by: LISA SEALS,PT Please sign and return to therapist. Thank you for your referral.
--- NOTE | 2024-05-01 08:09 | MHC.PT.DC ---
[facility] [place] Office [place] [facility] [place] [facility] [address] [place] [address] [facility] [phone] F: [phone] F: [phone] F: [phone] F: [phone] Physical Therapy Discharge Report Diagnosis: COMPLETE TEAR OF ACL, RIGHT KNEE-> QUAD ACTIV, PRE-OP CONDITIONING Date of Surgery: TBD Date of Evaluation: 04/12/24 Date of Discharge: 05/01/24 Treatments to Date: 3 Cancellations to Date: 0 No Shows to Date: 0 Discharge Status: Achieved Goals Improved Function Independent with HEP Patient Elected to Stop Discharge Summary: Pt benefitted from pre-op PT- he underwent an ACL repair w allograft on 04/27/24- he met his pre-op goals and is discharged from PT at this time. Electronically signed by: Elsi Alexander,PT Please sign and return to therapist. Thank you for your referral.
== END 2024-05-01 08:10 | disposition home or self-care (01) ==
LOC: HO.PT 10:00
PROVIDERS: PCP Student in an Organized Health Care Education/Training Program; Visit Provider Orthopaedic Surgery
DX: S83.511A Sprain of anterior cruciate ligament of right knee, initial encounter (principal)
CPT/HCPCS: 97110; 97116; 97162; 97530

== ENCOUNTER 2024-04-27 10:45 | Day surgery (SDC) | payer MEDICAID, SELFPAY ==
[2024-04-25 13:27] VITALS: BMI 21.5
--- NOTE | 2024-04-25 13:47 | P.CONAN_ITS ---
Documented by User: Josi Gonzalez NP 04/25/24 13:48 HPI - Anesthesia Eval Consult details Narrative: 34yo M for Right ACL Allograft PMFSH Active Problems Active Problems: All Active Problems Complete tear of anterior cruciate ligament of right knee (Acute) NSAID long-term use (Acute) Inflammatory arthritis (Acute) Past Medical History Medical History Inflammatory arthritis ADD (attention deficit disorder) Neck pain Anxiety Elevated C-reactive protein (CRP) Pain in joint, multiple sites Back pain Family History Family History Mother No problems noted. Father Gout Surgical History Surgical History No history of previous surgery Social History Social History Household Members: Family Are you a primary career placement services counselor to a significant other at home: No Do you presently have visiting nurse or other home services: No Alcohol intake: current Alcohol intake frequency: a few times a week Patient Tobacco Use Status: Current everyday Tobacco user Tobacco use type: Cigarette Cigarettes Per Day: 3 Use of substances other than those prescribed or required for medical reasons: Yes Substance Use Frequency: Daily Have you been hit, kicked, punched, or otherwise hurt by someone within the past year? If so, by whom?: No Are you DNR?: No Advance Directives: No Advance Directives Information Provided: Yes Recently lost weight without trying: No Nutrition Risks: No Nutritional Risk Poor oral hygiene: No Current occupation: [employer] Meds Allergies Allergy/AdvReac Type Severity Reaction Status Date / Time Penicillins [PENICILLINS] Allergy Unknown Rash Verified 04/27/24 11:26 Home Medications ?Medication ?Instructions ?Recorded ?Confirmed ?Last Taken ?Type dextroamphetamine-amphetamine ER 1 cap PO DAILY 07/27/23 04/27/24 04/26/24 History 20 mg 24hr capsule,extend release (Adderall XR) nicotine 7 mg/24 hr daily 1 patch topical QAM 07/27/23 04/27/24 04/26/24 History transdermal patch Exam Height,Weight and Vital Signs: Height 5 ft 10 in Weight 68.039 kg Pertinent Lab Results Pertinent Lab Results: Laboratory Tests 01/16/24 09:15 WBC 8.4 Hgb 13.9 L Hct 41.4 L Plt Count 308 Sodium 142 Potassium 4.7 Chloride 105 Carbon Dioxide 30 H BUN 9 Creatinine 0.78 Assessment and Plan Assessment Anesthesia Assessment: Chart Reviewed Documented by User: Zachery Way MD 04/27/24 12:49 PMFSH Past Medical History Medical History Inflammatory arthritis ADD (attention deficit disorder) Neck pain Anxiety Elevated C-reactive protein (CRP) Pain in joint, multiple sites Back pain Family History Family History Mother No problems noted. Father Gout Family history of problems with anesthesia: No Surgical History Surgical History No history of previous surgery History of Problems with Anesthesia: No Social History Social History Household Members: Family Are you a primary career placement services counselor to a significant other at home: No Do you presently have visiting nurse or other home services: No Alcohol intake: current Alcohol intake frequency: a few times a week Patient Tobacco Use Status: Current everyday Tobacco user Tobacco use type: Cigarette Cigarettes Per Day: 3 Use of substances other than those prescribed or required for medical reasons: Yes Substance Use Frequency: Daily Have you been hit, kicked, punched, or otherwise hurt by someone within the past year? 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 Allergies Allergy/AdvReac Type Severity Reaction Status Date / Time Penicillins [PENICILLINS] Allergy Unknown Rash Verified 04/27/24 11:26 Home Medications ?Medication ?Instructions ?Recorded ?Confirmed ?Last Taken ?Type dextroamphetamine-amphetamine ER 1 cap PO DAILY 07/27/23 04/27/24 04/26/24 History 20 mg 24hr capsule,extend release (Adderall XR) nicotine 7 mg/24 hr daily 1 patch topical QAM 07/27/23 04/27/24 04/26/24 History transdermal patch Exam Airway Mallampati Class: I TM Dist: <=3cm Neck ROM: Full Loose/Missing/Broken Teeth: No Heart: ok Lungs: ok Assessment and Plan Assessment Anesthesia Assessment: Anesthesia Plan Discussed Final Anesthetic Review Family History of Problems with Anesthesia: No History of Problems with Anesthesia: No NPO: Yes ASA Class: III Final Preanesthetic Review: No Changes in Pt Med Stat, Meds/Allgs Chart Reviewed, Consent Obtained/Reviewed and Anes Risks/Benef Reviewed Patient Risk: Intermediate Procedure Risk: Low Anesthetic Plan Anesthetic Plan: GA and Regional Block Disposition: Standard PACU
[2024-04-27] VITALS (8 sets, daily range): BP systolic 99–127; BP diastolic 51–81; PULSE 65–77; RESP 14–18; TEMP 36.5–36.8; O2SAT 96–98; BMI 23.0
[2024-04-27] MEDS: Lactated Ringers 1,000 ML 100 ML IVCONT (12:13)
--- NOTE | 2024-04-27 12:17 | MHC.SHP ---
Pre-Procedural Eval Section A - 24 Hr Update-Section A only Date of Service: 04/27/24 The patient is an INPATIENT: No Changes since office visit: No Cold of Flu in the past 2 weeks, No New Medical Problems, No Changes in Medication and No Patient answered all questions The patient has been examined within 24 hours of the surgical procedure. The History & Physical has been completed within 30 days and I have reviewed it.: Yes Section B - Complete if H&P > 30 days Chief Complaint: Sprain of anterior cruciate ligament of right knee Allergies: Allergies Allergy/AdvReac Type Severity Reaction Status Date / Time Penicillins [PENICILLINS] Allergy Unknown Rash Verified 04/27/24 11:26 Plan I have reviewed the history and physical and performed a pertinent physical examination on my patient. No changes have occurred unless specified. Time Spent With Patient Time: Total time managing care of this patient today ____ minutes.
[2024-04-27] MEDS: oxyCODONE HCl Immed Release 5 MG TABLET PO (15:01)
--- NOTE | 2024-04-27 17:42 | P.BOP_ITS ---
Brief Operative Note Date of Service: 04/27/24 Pre-op diagnosis: Right ACL tear Post-op diagnosis: same Procedure: Right ACL reconstruction with allograft Implants: Babin and Nephew endobutton with allograft and [id number] interference screw Surgeon: Maicol Watkins MD Anesthesia: GLMA and regional Was an Emergency Response Coordinator used for this Procedure?: Yes Emergency Response Coordinator: Mally Mendoza Estimated blood loss (mL): 20 Tourniquet time (min): 40 IV fluids (mL): 800 Pathology: none sent Condition: stable Disposition: PACU
--- NOTE | 2024-04-27 17:52 | P.OP_ITS ---
Operative Note Operative Note Date of Service: 04/27/24 Narrative: Date of Service: 04/27/24 Pre-op diagnosis: Right ACL tear Post-op diagnosis: same Procedure: Right ACL reconstruction with allograft Implants: [employer] endobutton with allograft and [id number] interference screw Surgeon: Maicol Watkins MD Anesthesia: GLMA and regional Was an Contact Worker Lithography used for this Procedure?: Yes Contact Worker Lithography: Mally Mendoza Estimated blood loss (mL): 20 Tourniquet time (min): 40 IV fluids (mL): 800 Pathology: none sent Condition: stable Disposition: PACU Procedure in detail: Patient was brought to the operating room placed supine on the arthroscopic table and prepped and draped in standard sterile fashion. A time-out was called to identify proper site proper procedure proper surgeon and IV antibiotics per weight were administered. Under anesthesia she had a + pivot shift. I began by exsanguinating the limb and insufflating tourniquet to 300 mm Hg. Then made a standard anterolateral stab incision. The knee was insufflated with water and 30 degree arthroscope was placed. There was grade 1 fibrillations of the patella but overall suprapatellar pouch and the gutters were clean. I descended into the medial compartment where I made my far medial portal under direct visualization. Medial lateral meniscus pristine tearing. ACL stump prominent and displaced slightly laterally appeared. I then examined the notch where there was a + empty wall sign and an intact PCL. I debrided the stump and acl footprint and performed a limited notchplasty. I then, through a far AM portal and a 7mm behind the back guide, drilled a k-wire through the LFC with the knee in hyper-flexion. I measured the tunnel as a 38 and then after sizing the allograft on the back table drilled a 32 mm tunnel with an 11 mm reamer. The final 6 mm was drilled with a 4.5 reamer. I then pulled a suture through the femoral tunnel and turned my attention to the tibia. I did examine the femoral tunnel and was satisfied with the posterior wall and its location low and medial at the anatomic footprint. I placed my tibial drill guide in 55 deg and, through a anteromedial inc just lateral to the tibial tubercle placed a k-wire into the notch exiting just medial to the anterior horn insertion of the lateral meniscus. I then over-reamed with an 11 reamer. I cleaned the tunnels up with a shaver. On the back table I whip-stitched the allograft to fit through an 11 aperture and attached the femoral button to the looped end. I placed the graft on 15lbs of tension for 10 minutes. I then passed the allograft through the tibial tunnel and femoral tunnel and flipped the button. I cycled the knee about 10-15 cycles and then placed a tibial interference screw with the knee in hyper- extension while holding the graft taught. Once I was satisfied that the interference screw was buried I examined the ACL. The ACL was not impinging and there was a negative pivot shift. I then removed all instrumentation and closed the incisions with nylon. Patient was then placed in sterile dressings and a hinged knee brace. She was then extubated brought recovery room stable condition. There were no known complications.
== END 2024-04-27 15:41 | disposition home or self-care (01) ==
PROVIDERS: PCP Internal Medicine; Visit Provider Orthopaedic Surgery
PROC: (CPT 27428; principal; 2024-04-27 12:30)
DX: S83.511A Sprain of anterior cruciate ligament of right knee, initial encounter (principal); M23.51 Chronic instability of knee, right knee; M25.561 Pain in right knee; X50.1XXA Overexertion from prolonged static or awkward postures, initial encounter; Y93.83 Activity, rough housing and horseplay; Y92.9 Unspecified place or not applicable; Y99.9 Unspecified external cause status; Z88.0 Allergy status to penicillin; Z72.0 Tobacco use
CPT/HCPCS: 29888; C1713; C1762; J0131; J0171; J0665; J0690; J1100; J1170; J2250; J2405; J2704; J3010

== ENCOUNTER → 2024-04-27 10:45 | Outpatient (BNV) | payer MEDICAID, SELFPAY | PROVIDERS: PCP Internal Medicine; Visit Provider Orthopaedic Surgery | DX: S83.511A Sprain of anterior cruciate ligament of right knee, initial encounter (principal) | CPT/HCPCS: 29888 ==

== ENCOUNTER 2024-05-03 10:20 | Outpatient (AMB) | payer MEDICAID, SELFPAY ==
--- NOTE | 2024-05-03 10:34 | MHC.OFFVIS ---
Intake Visit Reasons: PO-Rt ACL 04/27/24 NE Intake Note: Sigifredo is a 34 year old male who presents today for a post op appointment s/p Rt ACL 04/27/24 NE. Patient is doing well. Patient is taking prescribed pain medication when needed. Allergies Penicillins [PENICILLINS] Allergy (Unknown, Verified 05/03/24 10:37) Rash HPI HPI PO-Rt ACL 04/27/24 NE: Details: 34-year-old male who presents in the office today for 6 days status post of right ACL reconstruction with allograft which was performed on 04/27/[address] Watkins. While in the office today, the patient reports he is doing well post-op. He is taking prescribed pain medication when needed. Wearing the brace and ambulating with crutches. [facility] Medical History Inflammatory arthritis ADD (attention deficit disorder) Neck pain Anxiety Elevated C-reactive protein (CRP) Pain in joint, multiple sites Back pain Surgical History No history of previous surgery Family History Mother No problems noted. 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 Sutures are intact. No surrounding erythema or drainage. No signs of infection. NVI. Assessment & Plan Assessment & Plan (1) Status post reconstruction of anterior cruciate ligament: Code(s): Z98.890 - Other specified postprocedural states Plan Mr. Padilla is a 34-year-old male who presents in the office today for 6 days status post of right ACL reconstruction with allograft which was performed on 04/27/[address] Watkins. While in the office today, the patient reports he is doing well post-op. He is taking his prescribed pain medication when needed. Sutures were removed and steri-strips were applied. The patient is scheduled for his first physical therapy session on 05/04/24. He will attend his PT sessions. He was recommended to remain in the brace until quad control allows. Follow up will be [address] Watkins, or sooner if needed. X-rays of the right knee which were obtained while in the office today and were reviewed by me, Mally Mendoza PA-C, revealed proper positioning of the endo button on the femur. Orders: Orders XR knee RT 2V Today M25.569 - Pain in unspecified knee Patient Instructions: Scribed by Shirin Guzmán, medical technologist hematology, for Mally Mendoza PA-C on 05/03/24 at 10:57 am EST. Coding Level of Care Code Global (74086) Diagnoses Status post reconstruction of anterior cruciate ligament Z98.890
== END 2024-05-03 11:03 | disposition home or self-care (01) ==
LOC: HO.HOS 10:20
PROVIDERS: PCP Internal Medicine; Visit Provider Physician Assistant
DX: Z98.890 Other specified postprocedural states (principal)
CPT/HCPCS: 99024

== ENCOUNTER 2024-05-03 11:10 | Outpatient (REF) | payer MEDICAID, SELFPAY | END 2024-05-03 11:11 | disposition home or self-care (01) | LOC: HO.HOSX 11:10 | PROVIDERS: Visit Provider Physician Assistant | DX: M25.571 Pain in right ankle and joints of right foot (principal); Z98.890 Other specified postprocedural states | CPT/HCPCS: 73560; 99212 ==

== ENCOUNTER 2024-05-14 15:03 | Outpatient (REF) | payer MEDICAID, SELFPAY ==
[2024-05-14 15:14] LABS: MANUAL DIFF FLAG NO
[2024-05-14 16:30] LABS: Basophils Absolute Auto 0.1 X10*3/uL (0.0-0.2); Basophils Percent Auto 0.5 % (0-2); Eosinophils Percent Auto 0.2 % (0-4); Hematocrit 40.9 % (42.0-52.0); Hemoglobin 13.5 g/dl (14.0-18.0); Imm Gran Abs Auto 0.05 X10*3/uL (0.00-0.03); Imm Gran Pct Auto 0.4 % (0.0-0.4); Lymphocytes Absolute Auto 2.1 X10*3/uL (1.2-4.9); Lymphocytes Percent Auto 16.5 % (20-40); Mean Corpuscular Hemoglobin 30.5 pg (27.0-33.0); Mean Corpuscular Volume 92.5 fL (80.0-98.0); Mean Platelet Volume 10.1 fL (9.4-12.4); Monocytes Absolute Auto 0.7 X10*3/uL (0.1-1.2); Monocytes Percent Auto 5.5 % (2-11); Neutrophils Absolute Auto 9.9 x10*3/uL (2.0-8.3); Neutrophils Percent Auto 76.9 % (45-73); Platelet Count 459 X10*3/uL (160-400); Red Blood Count 4.42 X10*6/uL (4.60-5.80); Red Cell Distribution Width 12.7 % (11.0-16.0); White Blood Count 12.9 X10*3/uL (4.8-10.8)
[2024-05-14 16:53] LABS: Alanine Aminotransferase 12 U/L (0-40); Albumin Level 4.6 g/dL (3.5-5.0); Alkaline Phosphatase 73 U/L (39-117); Anion Gap 13 (12-20); Aspartate Amino Transferase 14 U/L (5-37); Bilirubin Total 0.3 mg/dL (0.0-1.0); Blood Urea Nitrogen 14 mg/dL (9-16); C Reactive Protein 0.34 mg/dL (< or = 0.50); Calcium 10.3 mg/dL (8.4-10.2); Carbon Dioxide 31 mmol/L (22-29); Chloride 99 mmol/L (96-108); Estimated Glomerular Filt Rate > 60; Glucose Random 108 mg/dL (60-115); Potassium 3.7 mmol/L (3.3-5.1); Sodium 139 mmol/L (135-145); Total Protein 7.7 g/dL (6.5-8.0)
[2024-05-14 17:25] LABS: Erythrocyte Sedimentation Rate 18 MM/HR (0-15)
== END 2024-05-14 15:04 | disposition home or self-care (01) ==
LOC: HO.LAB 15:03
PROVIDERS: PCP Student in an Organized Health Care Education/Training Program; Visit Provider Student in an Organized Health Care Education/Training Program
DX: M19.90 Unspecified osteoarthritis, unspecified site (principal)
CPT/HCPCS: 36415; 80053; 85025; 85652; 86140

== ENCOUNTER 2024-05-15 10:43 | Outpatient (AMB) | payer MEDICAID, SELFPAY ==
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
[2024-05-15 10:50] VITALS: BP 112/62; PULSE 89; O2SAT 99; BMI 22.8
== END 2024-05-15 11:01 | disposition home or self-care (01) ==
PROVIDERS: PCP Internal Medicine; Visit Provider Student in an Organized Health Care Education/Training Program
DX: M19.90 Unspecified osteoarthritis, unspecified site (principal); Z79.1 Long term (current) use of non-steroidal anti-inflammatories (NSAID)
CPT/HCPCS: 99214

== ENCOUNTER → 2024-05-15 10:43 | Outpatient (BNVA) | payer MEDICAID, SELFPAY | PROVIDERS: PCP Internal Medicine; Visit Provider Student in an Organized Health Care Education/Training Program | DX: M19.90 Unspecified osteoarthritis, unspecified site (principal); M25.561 Pain in right knee; M25.562 Pain in left knee; Z79.1 Long term (current) use of non-steroidal anti-inflammatories (NSAID); Z98.890 Other specified postprocedural states | CPT/HCPCS: 99212 ==

== ENCOUNTER 2024-05-31 09:45 | Outpatient (AMB) | payer MEDICAID, SELFPAY ==
--- NOTE | 2024-05-31 10:01 | A.OFFVIS_ITS ---
Vital Signs 05/31/24 10:08 Height 5 ft 10 in Weight 159 lb BMI 22.8 Intake Visit Reasons: PO: Rt ACL 04/27/24 NE Intake Note: Sigifredo is a 34 year old male who presents today for a post op appointment s/p Rt ACL 04/27/24 NE. Patient reports that he is doing very well with no conerns. He states that he has not started Physical Therapy as he has not been able to drive or find transportation to appointments, he feels that he is doing well without PT Allergies Penicillins [PENICILLINS] Allergy (Unknown, Verified 05/15/24 10:48) Rash HPI HPI PO: Rt ACL 04/27/24 NE: Details: Sigifredo is a 34 year old male who presents today for a post op appointment s/p Rt ACL 04/27/24 NE. Patient reports that he is doing very well with no conerns. He states that he has not started Physical Therapy as he has not been able to drive or find transportation to appointments, he feels that he is doing well without PT PFSH Medical History Inflammatory arthritis ADD (attention deficit disorder) Neck pain Anxiety Elevated C-reactive protein (CRP) Pain in joint, multiple sites Back pain Surgical History History of knee joint replacement No history of previous surgery Family History Mother No problems noted. 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 Physical Exam Vital Signs: BMI result Body Mass Index 22.8 Extrem Other: 0-70 degrees of motion Incisions well healed Antalgic gait Assessment & Plan Assessment & Plan (1) Complete tear of anterior cruciate ligament of right knee: Code(s): S83.511A - Sprain of anterior cruciate ligament of right knee, initial encounter Category: Medical Qualifiers: Encounter type: initial encounter Qualified Code(s): S83.511A - Sprain of anterior cruciate ligament of right knee, initial encounter Plan: Casey is proximally 6 weeks status post right ACL reconstruction and he has not attended any therapy after surgery. He is stiff and this is concerning. He had an appointment but, for some reason, he thought he could do it on his own. I have been prescription for stat PT and I will see him back in 4 weeks. Orders: Orders PT Evaluation and Treatment Today S83.511A - Sprain of anterior cruciate ligament of right knee, initial encounter Coding Level of Care Code Global (22528) Diagnoses Complete tear of anterior cruciate ligament of right knee, initial encounter S83.511A Encounter type: initial encounter
[2024-05-31 10:08] VITALS: BMI 22.8
== END 2024-05-31 10:33 | disposition home or self-care (01) ==
LOC: HO.HOS 09:45
PROVIDERS: PCP Internal Medicine; Visit Provider Orthopaedic Surgery
DX: S83.511A Sprain of anterior cruciate ligament of right knee, initial encounter (principal)
CPT/HCPCS: 99024

== ENCOUNTER → 2024-05-31 09:45 | Outpatient (BNVA) | payer MEDICAID, SELFPAY | PROVIDERS: PCP Internal Medicine; Visit Provider Orthopaedic Surgery | DX: S83.511D Sprain of anterior cruciate ligament of right knee, subsequent encounter (principal) | CPT/HCPCS: 99212 ==

== ENCOUNTER 2024-06-05 09:40 | Outpatient (RCR) | payer MEDICAID, SELFPAY | END 2024-07-06 11:29 | disposition home or self-care (01) | LOC: HO.PT 09:40 | PROVIDERS: PCP Student in an Organized Health Care Education/Training Program; Visit Provider Orthopaedic Surgery | DX: S83.511A Sprain of anterior cruciate ligament of right knee, initial encounter (principal) | CPT/HCPCS: 97110; 97161; 97535 ==

== ENCOUNTER 2024-06-25 13:20 | Outpatient (AMB) | payer MEDICAID, SELFPAY ==
--- NOTE | 2024-06-25 13:32 | A.OFFVIS_ITS ---
Intake Visit Reasons: PO: Rt ACL 04/27/24 NE Intake Note: Sigifredo is a 34 year old male who presents today for a post op appointment s/p Right ACL Reconstruction with Allograft 04/27/24 NE. At his last visit he had very limited ROM due to lack of compliance with physical therapy. Patient was seen at physical therapy for one visit and no showed/cancelled all further appointments Allergies Penicillins [PENICILLINS] Allergy (Unknown, Verified 06/25/24 13:32) Rash HPI HPI PO: Rt ACL 04/27/24 NE: Details: Sigifredo is a 34 year old male who presents today for a post op appointment s/p Right ACL Reconstruction with Allograft 04/27/24 NE. At his last visit he had very limited ROM due to lack of compliance with physical therapy. Patient was seen at physical therapy for one visit and no showed/cancelled all further appointments PFSH Medical History Inflammatory arthritis ADD (attention deficit disorder) Neck pain Anxiety Elevated C-reactive protein (CRP) Pain in joint, multiple sites Back pain Surgical History History of knee joint replacement No history of previous surgery Family History Mother No problems noted. 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 5-100 25 degrees of motion with a 5 degree extension lag. Mild effusion. 1+ Jazmine's. Assessment & Plan Assessment & Plan (1) Complete tear of anterior cruciate ligament of right knee: Code(s): S83.511A - Sprain of anterior cruciate ligament of right knee, initial encounter Category: Medical Qualifiers: Encounter type: initial encounter Qualified Code(s): S83.511A - Sprain of anterior cruciate ligament of right knee, initial encounter Plan: 34-year-old gentleman who had a successful ACL reconstruction but who has not attended physical therapy and does not intend to. He has been doing lots of exercise and states he is doing well but I am a little concerned that he has not been strengthening sufficiently. His quad is weak and I reviewed exercises he should be doing at home and activities he should avoid. Please follow up in 3 months. Coding Level of Care Code Global (12173) Diagnoses Complete tear of anterior cruciate ligament of right knee, initial encounter S83.511A Encounter type: initial encounter
== END 2024-06-25 13:51 | disposition home or self-care (01) ==
PROVIDERS: PCP Internal Medicine; Visit Provider Orthopaedic Surgery
DX: S83.511A Sprain of anterior cruciate ligament of right knee, initial encounter (principal)
CPT/HCPCS: 99024

== ENCOUNTER → 2024-06-25 13:20 | Outpatient (BNVA) | payer MEDICAID, SELFPAY | PROVIDERS: PCP Internal Medicine; Visit Provider Orthopaedic Surgery | DX: S83.511D Sprain of anterior cruciate ligament of right knee, subsequent encounter (principal); X58.XXXD Exposure to other specified factors, subsequent encounter; Z98.890 Other specified postprocedural states | CPT/HCPCS: 99212 ==

== ENCOUNTER 2024-12-28 14:50 | Outpatient (AMB) | payer MEDICAID, SELFPAY ==
[2024-12-28 14:51] VITALS: BP 132/72; PULSE 82; O2SAT 98; BMI 23.1
--- NOTE | 2024-12-28 14:51 | MHC.OFFVIS ---
Vital Signs 12/28/24 14:51 Height 5 ft 10 in Weight 160 lb 14.999 oz BMI 23.1 BP 132/72 Blood Pressure Location Lt brachial Position Sitting Pulse 82 Pulse Source Pulse Oximeter Pulse Oximetry (%) 98 Oxygen Delivery Method Room Air Intake Visit Reasons: AxSpA Intake Note: Patient presents for follow up on AxSpa and lab review. Allergies Penicillins [PENICILLINS] Allergy (Unknown, Verified 12/28/24 14:54) Rash Medication List - Last Reconciled 12/28/24 by Christi Quintana MD lisdexamfetamine (Vyvanse) 40 mg PO QAM HPI Comments Details: Patient is a 34-year-old male with seronegative spondyloarthritis here today for follow up Interval History: Patient last seen 05/15/[address] Gonzales. At that time he was following up for her seronegative spondyloarthropathy on . At that time he was recovering from arthroscopic repair of a right knee ACL tear. Since then he has restarted meloxicam 15 mg daily due to worsening joint pain. 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 He stated that the condition started about a year ago with intermittent joint pain, swelling and stiffness, including his hands, feet, right elbow, neck, upper back. He went to the emergency room 1 time when his entire body froze with stiffness and he was prescribed prednisone with dramatic improvement. He had another ER visit and was found to have right olecranon bursitis. This has since resolved. States that he has generalized morning stiffness affecting his upper neck, back and entire body lasting at least 30 minutes. He gets episodes with sausage digits affecting his right thumb. He states that has always been double jointed he never dislocated a joint. He denies any history of any rashes. Denies any GI upset. Denies any fevers. He has been taking meloxicam 7.5 mg daily regularly for past year and feels better overall. He is unaware of any family history of an autoimmune rheumatic disease Current Rheumatology Medication(s): Meloxicam 15mg daily [facility] Medical History Inflammatory arthritis ADD (attention deficit disorder) Neck pain Anxiety Elevated C-reactive protein (CRP) Pain in joint, multiple sites Back pain Surgical History History of knee joint replacement No history of previous surgery Family History Mother No problems noted. 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 Review of Systems Const Details: Review of Systems Constitutional: Denies fever, chills, weight loss ENT: Denies vision changes, eye pain or eye redness, dental caries, dry mouth GI: Denies nausea, vomiting, diarrhea, abdominal pain, change in BM Pulm: Denies SOB, AMAYA, hemoptysis, wheezing Cards: Denies chest pain, palpitations Skin: Denies Raynaud's, rash, nail changes, photosensitivity, PIPE FITTER GAS PIPE: Denies headaches, weakness, paresthesias, recurrent falls MSK: as per HPI All other systems reviewed and are unremarkable except noted above Physical Exam Vital Signs: Last Vital Signs Pulse 82 12/28/24 14:51 BP 132/72 12/28/24 14:51 Pulse Ox 98 12/28/24 14:51 Oxygen Delivery Method Room Air 12/28/24 14:51 BMI result Body Mass Index 23.1 Vital signs reviewed Physical Examination CONSTITUITIONAL Patient alert and cooperative. Well appearing and in no apparent painful distress HEENT Conjunctiva and sclera clear. ?Pupils equal round and reactive to light. ?No lymphadenopathy. ? CHEST/RESPIRATORY SYSTEM Normal respiratory effort and able to speak in complete sentences. ?Clear to auscultation bilaterally. ?No crackles, rales, rhonchi, wheezes heard. CARDIAC SYSTEM Regular rate and rhythm. ?S1 and S2 heard no murmurs. ?Radial pulses intact bilaterally MSK Hands: ?Able to make a fist. No synovitis noted to the MCPs, PIPs or DIPs. ?No tenderness to palpation of these joints. No deformities noted. ? Wrists: ?Full range of motion at the wrists without pain. ?No tenderness to palpation or synovitis noted to the wrists. Elbows: Full range of motion without pain. No tenderness, weakness, swelling, increased warmth or erythema. Shoulders: Full range of active range of motion without pain. No tenderness, weakness, swelling, increased warmth or erythema. Hips: Full range of motion without pain. Hip bursa: No tenderness to palpation Knees: ?Full range of motion. ?No effusions. Tenderness to palpation of bilateral knee joints. Currently wearing a knee brace on both knees. Ankles: Full range of motion. ?No tenderness, swelling, increased warmth or erythema.? Feet: ?Negative squeeze test. ?No tenderness to palpation or swelling of the MTPs. Tender points:?No tenderness to palpation of the bilateral trapezius, supraspinatus, greater trochanters, anterior costochondral junctions, bilateral gluteal areas, bilateral suboccipital muscle insertions Schobers test 5cm ---> 15cm SKIN Skin intact without rashes. Results Reviewed Results Reviewed: Laboratory Tests 05/14/24 15:13 WBC 12.9 H RBC 4.42 L Hgb 13.5 L Hct 40.9 L Plt Count 459 H D ESR 18 H Sodium 139 Potassium 3.7 D Chloride 99 Carbon Dioxide 31 H BUN 14 Creatinine 0.93 AST 14 ALT 12 Alkaline Phosphatase 73 C-Reactive Protein 0.34 Total Protein 7.7 Assessment & Plan Assessment & Plan (1) Inflammatory arthritis: Code(s): M19.90 - Unspecified osteoarthritis, unspecified site Category: Medical Plan: #Seronegative spondyloarthritis Patient is a 34 y.o. male with seronegative spondyloarthritis currently well managed with NSAIDs. Also has hypermobility of his joints. Encouraged patient to do weight bearing exercises to strengthen the muscles Plan - Meloxicam 15mg daily - Labs today: CBC, CMP, ESR, CRP - RTC 5 months (2) NSAID long-term use: Code(s): Z79.1 - custodial (current) use of non-steroidal anti-inflammatories (NSAID) Category: Medical Plan: #Long-term Use of NSAIDs Discussed with patient the benefits and risk of NSAIDs for managing the rheumatic condition Benefits include: - Reduced the pain, improved mobility, and increased participation in activities Risks include: - GI upset, potential also worsening or formation (especially in patients > 65 years old) Recommended using proton pump inhibitors (PPIs) for the duration of NSAID use to reduce the risk of gastric ulcers Plan I spent 20 minutes reviewing the record and labs, taking a history, examining the patient, discussing the treatment plan, ordering diagnostic work up and documenting in the medical record Orders: Orders Complete Blood Count Auto Diff Today M19.90 - Unspecified osteoarthritis, unspecified site Comprehensive Met. Panel Today M19.90 - Unspecified osteoarthritis, unspecified site C Reactive Protein Today M19.90 - Unspecified osteoarthritis, unspecified site Erythrocyte Sedimentation Rate Today M19.90 - Unspecified osteoarthritis, unspecified site Erythrocyte Sedimentation Rate 4 Months M19.90 - Unspecified osteoarthritis, unspecified site, Z79.1 - custodial (current) use of non-steroidal anti-inflammatories (NSAID) Medications: New meloxicam 15 mg PO DAILY 90 tabs 1RF Coding Level of Care Code Est Pt Level 3 (09887) Diagnoses Inflammatory arthritis M19.90 NSAID long-term use Z79.1
--- OUTSIDE RECORDS SUMMARY | 2024-12-28 14:52 | XMS_ITS | Clinical Summary ---
Author Organization [facility] Address [address] [place] [address] Care Team Providers Care Evaporator Operator Name Role Phone Berta Fox MD Primary Care Pro vider Allergies Active Allergy Reactions Criticality Noted Date Comments Penicillins Rash Low 01/03/2017 In 2009 generalized skin rash after PNC Medications Acetaminophen Extra Strength 500 MG tablet Take 1 tablet by mouth every 6 (six) hours if needed. 09/17/19 23 Active Vyvanse 40 MG capsule Take 1 capsule by mouth Once per day. 11/22/19 25 Active meloxicam (Mobic) 7.5 MG tablet Take 1 tablet (7.5 mg) by mouth Once per day. 30 tablet 1 12/13/19 25 Active Adderall XR 25 MG 24 hr capsule Take 25 mg by mouth Once per day. 12/02/19 24 025 Discontinued(Ot her) meloxicam (Mobic) 7.5 MG tablet Take 7.5 mg by mouth. 025 Discontinued(Re order (will not trigger notification to Pharmacy)) lidocaine (Lidoderm) 5 % patchIndicatio ns:Injury of right knee, initial encounter Apply 1 patch topically Once per day. Remove & discard patch within 12 hours or as directed by . 15 patch 12/20/19 24 025 Discontinued(Ot her) Diclofenac Sodium 1 % gel APPLY 2 GRAMS TWICE DAILY AT NOON AND IN THE EVENING NEEDED FOR PAIN (KNEES, ELBOWS AND HANDS) 100 g 06/14/20 24 025 Discontinued(Ot her) nicotine (Nicoderm CQ) 14 MG/24HR patch Place 1 patch on the skin 1 (one) time each day at the same time. 42 patch 1 06/14/20 24 025 Discontinued(No n-compliance) Active Problems Problem Noted Date Diagnosed Date Seronegative spondyloarthropathy 12/20/2023 Right knee pain 12/20/2023 Hyperlipidemia 03/29/2023 Assessment & Plan (03/29/2023 3:08 PM EDT): 01/2023 Total ch 219, HDL 58,LDL 141, trig wnl -advised life style changes advised -will repeat fasting lipids in 6 to 12 months Tobacco abuse 01/31/2023 Assessment & Plan (03/29/2023 3:02 PM EDT): Started at 18 y of age --3 PQT a day x 1 years then 2 PQT a day and 6 y ago 1 PQT day -stopped 7- 8 months 14 years of smoking and now vaping but decrease to few in past months Renzo PQT year 27 but pt's age not to start lung ca screening -advised to continue to avoid smoking tobacco including vaping -however improved significantly -offered tobacco cessation program but refusing x now -pt agreed x nicotine patches that helped before-continue 7 mg daily x another 2 mo (stared last month) and states has nicotine lozanges But not helpful-agreed to try nicotrol -px today -will monitor Anxiety 01/31/2023 Assessment & Plan (03/29/2023 3:02 PM EDT): Reports to be following w psychiatrist at [facility] -Dr Guerin PHQ9 is 3 but due to poor sleep but states because has a baby at home denies depression no SI ,denies sharon nor halluciantions -reports to feel stable Assessment & Plan (01/31/2023 6:39 PM EDT): Reports to be following w psychiatrist at [facility] -Dr Guerin PHQ9 is 3 today but due to poor sleep but states because has a baby at home denies depression no SI ,denies sharon nor halluciantions -reports to feel stable Health care maintenance 01/31/2023 Assessment & Plan (03/29/2023 3:09 PM EDT): -Quantiferon 01/2023 Neg -vaccines: hep B immune, s/p covid 19 x2-Bivalent x 1 ,p20 01/2023 x smoking hx, s/p tdap 2021, HPV never -offered but refused Assessment & Plan (01/31/2023 6:37 PM EDT): -vaccines: s/p covid 19 x2-Bivalent dose today,p20 today x smoking hx, s/p tdap 2021, HPV never -offered but refused -labs x annual exam today,not in fasting -pt agreed to have STI testing including HIV to have for baseline ,noted previous labs w anemia and elevated platelets -will repeat CBC,iron panel -denies melenas,BRPR nor hematuria Penicillin allergy 01/31/2023 Assessment & Plan (03/29/2023 3:03 PM EDT): Reports hx of PNC allergy-referred already to cloth tester quality to clarify if true allergy Assessment & Plan (01/31/2023 6:39 PM EDT): Reports hx of PNC allergy-referred today to cloth tester quality to clarify if true allergy Resolved Problems Problem Noted Date Diagnosed Date Resolved Date Ear mass, right 06/29/2023 12/20/2023 Thrombocytosis 03/29/2023 12/20/2023 Assessment & Plan (03/29/2023 3:07 PM EDT): 01/2023 Platelets 513<---661, no anemia w hb at 14.2 , iron slight low ,ferritin wnl -possible reactive w inflammation ? -will do rest of workup ordered today and will call pt w result -will refer to loss prevention analyst w lab results Olecranon bursitis, right elbow 01/31/2023 12/20/2023 Assessment & Plan (03/29/2023 2:51 PM EDT): Pt w seems chronic swelling in right olecranon-per pt reports improvement but unsure reason for ongoing soft swelling -appears bursitis not from elbow joint Improved -meloxicam prn x pain -referred to executive officer today Assessment & Plan (01/31/2023 6:30 PM EDT): Pt w seems chronic swelling in right olecranon-per pt reports improvement but unsure reason for ongoing soft swelling -appears bursitis not from elbow joint -meloxicam prn x pain -will refer at next apt to executive officer with labs done Tachycardia 01/31/2023 06/14/2024 Assessment & Plan (03/29/2023 2:50 PM EDT): Noted slight tachy manual check 104x' at previous visit -today HR wnl EKG 01/2023 HR 91x' but noted extreme right axis deviation -and compare w report of EKG in 10/2022 Pt with right axis deviation w possible right ventricular hyperthrophy -referred today for echocardiogram Assessment & Plan (01/31/2023 6:28 PM EDT): Noted slight tachy manual check 104x' EKG today is HR 91x' but noted extreme right axis deviation -and compare w report of EKG in 10/2022 Pt with right axis deviation w possible right ventricular hyperthrophy -will refer at next apt x echocardiogram Encounters Date Type Department Care Team Description 12/12/2024 3:00 PM EDT Office Visit [facility] [address] [place] [phone] Berta Fox MD Hyperlipidemia, unspecified hyperlipidemia type (Primary Dx); Health care maintenance; Acute pain of right knee; Seronegative spondyloarthropathy; Tobacco abuse 12/12/2024 Travel 12/11/[address] [facility] [address] [place] [address] Berta Fox MD CHART PREP 12/05/2024 Patient Outreach [facility] [address] [place] [phone] Berta Fox MD Pre-visit Planning (SDOH screening negative and tobacco screening negative) 10/12/2024 Population Health Risk Score [facility] ([facility]) Department [address] [phone] Provider, Population Health Generic from Last 3 Months Immunizations Immunization Administration Dates Next Due Influenza injectable quadrivalent preservative f ree 08/08/2021,04/27/2017 Influenza, seasonal, injectable, preservative fr ee 06/14/2024 Moderna Covid-19 Vaccine 6+ Bivalent 01/31/2023 Pfizer Covid-19 Vaccine 12+ 06/14/2024 Pneumococcal Conjugate PCV 20 01/31/2023 Tdap 08/08/2021 Family History Medical History Relation Name Comments Bipolar dx Father Gout Father phychaitric disorder Father's Brother Breast cancer Maternal Grandmother Breast cancer Mother Throat cancer Paternal Grandfather Schizophrenia Sister Relation Name Status Comments Father Father's Brother Maternal Grandmother Mother Paternal Grandfather Sister Social History Tobacco Use Types Packs/Day Years Used Date Smoking Tobacco: Some Days Cigarettes Passive Smoke Exposure: Past Smokeless Tobacco: Never Tobacco Cessation:Ready to Q uit: Not Asked; Counseling Given: Not Answered Comments:Started at 18 y of age --3 PQT a day x 1 years then 2 PQT a day and 6 y ago 1 PQT day -stopped 7- 8 months and now vaping couple times a day . Alcohol Use Standard Drinks/Week Comments Never 0 (1 standard drink = 0.6 oz pur e alcohol) Depression Answer Date Recorded Patient Health Questionnaire-9 Score 4 06/14/2024 Patient Health Questionnaire-9 Score 4 06/14/2024 Last PHQ-9: Questionnaire Data Not on file 1 08/14/2023 Housing Stability Answer Date Recorded What is your housing situation today? I have jax jaimes 12/05/[address] you li ve. Do you have problems with any of the following? None of the above 12/05/2024 Food Insecurity Answer Date Recorded Within the past 12 months, y ou worried that your food would run out before you got money to buy more: Never True 12/05/2024 Within the past 12 months,th e food you bought just didn't last and you didn't have enough money to get more: Never True 01/2025 Transportation Answer Date Recorded In the past 12 months, has l ack of transportation kept you from medical appts, meetings, work or from getting things needed for daily living? No 12/05/2024 Utilities Answer Date Recorded In the past 12 months, has t he [employer] ([employer]H), [employer], oil or water company threatened to shut off services in your home? No 12/05/2024 Depression Answer Date Recorded Patient Health Questionnaire-2 Score 1 06/14/2024 Internet Access Answer Date Recorded Internet Access Q1 Yes 12/05/2024 Internet Access Q2 Not on file 12/05/2024 Sex and Gender Information Value Date Recorded Sex Assigned at Male 05/31/2022 10:31 AM EDT Legal Sex Male 10:31 AM EDT Gender Identity Male 01/31/2023 1:58 PM EDT Sexual Orientation Straight 05/31/2022 10 :31 AM EDT Last Filed Vital Signs Vital Sign Reading Time Taken Comments Blood Pressure 121/73 12/12/2024 3:03 PM EDT Pulse 87 12/12/2024 3:03 PM EDT Temperature 36.6 ??C (97.9 ??F) 12/12/2024 3:03 PM ED T Respiratory Rate 20 12/12/2024 3:03 PM EDT Oxygen Saturation 95% 12/12/2024 3:03 PM EDT Inhaled Oxygen Concentration - - Weight 72.3 kg (159 lb 6.4 oz) 12/12/2024 3:03 P M EDT Height 177.8 cm (5' 10 ) 12/12/2024 3:03 PM EDT Body Mass Index 22.87 12/12/2024 3:03 PM EDT Plan of Treatment Upcoming Encounters Date Type Department Care Team (Late st Contact Info) Description 02/13/2025 2:45 PM EDT Office Visit [facility] [address] [place] [phone] Berta Fox MD [address] [place] [address] Health Maintenance Due Date Last Done Comments Family Planning (PISQ) 2004 Hepatitis B Vaccines (1 of 3 - 19+ 3-dose series) 2008 Alcohol/Substance Use Screening 06/14/2025 06/14/2024 Depression Screening 06/14/2025 06/14/2024, 06/14/20 24 Disability Screening 06/14/2025 06/14/2024 Tobacco Screening 06/14/2025 06/14/2024 SDOH Screening 12/05/2025 12/05/2024 Lipid Panel 02/01/2028 01/31/2023 DTaP/Tdap/Td Vaccines (2 - Td or Tdap) 08/08/2031 08/08/2021 Zoster Vaccines (1 of 2) 2039 RSV Patients and Patients Aged 60 years or older (1 - 1-dose 75+ series) 2064 HIV Screening Completed 01/31/2023 Pneumococcal Vaccine: Pediatrics (0 to 5 Years) and At-Risk Patients (6 to 49) Years) Completed 01/31/2023 Hepatitis C Screening Completed 07/27/2023, 023 COVID-19 Vaccine Completed 06/14/2024, 09/2022, 09/10/2021, Additional history exists Influenza Vaccine Completed 06/14/2024, , 04/27/2017 HIB Vaccines Aged Out No longer eligi ble based on patient's age to complete this topic HPV Vaccines Aged Out No longer eligi ble based on patient's age to complete this topic Hepatitis A Vaccines Aged Out No long er eligible based on patient's age to complete this topic IPV Vaccines Aged Out No longer eligi ble based on patient's age to complete this topic Meningococcal B Vaccine Aged Out No l onger eligible based on patient's age to complete this topic Meningococcal Vaccine Aged Out No bhumika agata eligible based on patient's age to complete this topic RSV under 20 months Aged Out No longe r eligible based on patient's age to complete this topic Rotavirus Vaccines Aged Out No longer eligible based on patient's age to complete this topic Procedures Procedure Name Priority Date/Time Associated Diagnosis Comments HEPATITIS PANEL, GENERAL Routine 07/27/2023 1:53 PM EST HIV 1/2 ANTIGEN/ANTIBODY, FOURTH GENERATION W/RFL Routine 01/31/2023 3:24 PM EDT Health care maintenance LIPID PANEL, STANDARD Routine 01/31/2023 3:24 PM EDT Health care maintenance from Last 3 Months or Most Recently Relevant to Health Maintenance Results * Hepatitis Panel, General (07/27/2023 1:53 PM EST) Hepatitis A IgM Nonreactive Nonreactive [facility] Comment:IgM antibodies to LLOYD V not detected; does not exclude earlyacute or recovered HAV infection. ~Hepatitis B Surface Antibody REACTIVE Nonreactive [facility] Comment:REACTIVE: > 11.99 mI U/mL Hepatitis B Core Antibody Nonreactive Nonreactive [facility] Hepatitis C Antibody Nonreactive Nonreactive [facility] Comment:Antibodies to HCV no t detected; does not exclude early acuteHCV infection. Hepatitis B Surface Ag Negative Negative [facility] 07/27/2023 1:53 PM EST 07/27/2023 1:53 PM EST us Generic External Data Provider LAB BLOOD ORDERAB LES Final Result [facility] [address] [place] [phone] * HIV-1/2 Antigen and Antibodies, Fourth Generation, with Reflexes (01/31/2023 3:24 PM EDT) Pathologist [facility] HIV Antigen/Antibody, 4th Generation NON-REAC TIVE NON-REAC TIVE [facility] Comment: HIV-1 antigen and HIV-1/HIV-2 antibodies were not detected. There is no laboratory evidence of HIV infection. PLEASE NOTE: This information has been disclosed to you from records whose confidentiality may be protected by state law. ??If your state requires such protection, then the state law prohibits you from making any further disclosure of the information without the specific written consent of the person to whom it pertains, or as otherwise permitted by law. A general authorization for the release of medical or other information is NOT sufficient for this purpose. ?? For additional information please refer to http://education.Business Texter/faq/SVI637 (This link is being provided for informational/ educational purposes only.) The performance of this assay has not been clinically validated in patients less than 2 years old. Blood Venous blood specimen / Unknown 01/31/2023 3:24 PM EDT 01/31/2023 3:25 PM EDT Narrative [facility] - 02/08/2023 7:23 AM EDT FASTING:NO FASTING: NO Berta Headley MD LAB BLOOD ORDERAB LES Final Result [facility] [address] [facility], [facility], [place] [address] [facility] [place] [facility] [address] [place] [address] * (ABNORMAL) Lipid Panel, Standard (01/31/2023 3:24 PM EDT) [facility] Cholesterol, Total 219(H) <200 mg/dL [facility] [place] [facility] HDL Cholesterol 58 > OR = 40 mg/dL [facility] [place] [facility] Triglycerides 92 <150 mg/dL [facility] [place] [facility] LDL Cholesterol 141(H) mg/dL (calc) [facility] Comment: Reference range: <100 Desirable range <100 mg/dL for primary prevention; ?? <70 mg/dL for patients with CHD or diabetic patients with > or = 2 CHD risk factors. LDL-C is now calculated using the Osito-Ion calculation, which is a validated novel method providing better accuracy than the Friedewald equation in the estimation of LDL-C. Osito SS et al. TIFFANIE. 2013;310(19): 1518-0176 (http://education.Ecovision.Social IQ (Social Influence Quotient)/faq/SGI133) Chol/HDLC Ratio 3.8 <5.0 (calc) [facility] [place] [facility] Non-HDL Cholesterol 161(H) <130 mg/dL (calc) [facility] Comment: For patients with diabetes plus 1 major ASCVD risk factor, treating to a non-HDL-C goal of <100 mg/dL (LDL-C of <70 mg/dL) is considered a therapeutic option. Blood Venous blood specimen / Unknown 01/31/2023 3:24 PM EDT 01/31/2023 3:25 PM EDT Narrative [facility] - 02/08/2023 7:23 AM EDT FASTING:NO FASTING: NO Berta Headley MD LAB BLOOD ORDERAB LES Final Result [facility] [address] [facility], [facility], [place] [address] [facility] [address] [place] [phone] from Last 3 Months or Most Recently Relevant to Health Maintenance Insurance [facility] C3 HSN FULL Care Teams Evaporator Operator Relationship Specialty Start Date End Date Berta Fox MD [address] [place] [address] PCP - General Internal Medicine 12/20/22
== END 2024-12-28 15:35 | disposition home or self-care (01) ==
LOC: HO.RHE 14:51
PROVIDERS: PCP Internal Medicine; Visit Provider Student in an Organized Health Care Education/Training Program
DX: M19.90 Unspecified osteoarthritis, unspecified site (principal); Z79.1 Long term (current) use of non-steroidal anti-inflammatories (NSAID)
CPT/HCPCS: 99213

== ENCOUNTER 2024-12-28 14:50 | Outpatient (REF) | payer MEDICAID, SELFPAY ==
[2024-12-28 15:52] LABS: MANUAL DIFF FLAG NO
[2024-12-28 16:34] LABS: Basophils Absolute Auto 0.1 X10*3/uL (0.0-0.2); Basophils Percent Auto 0.5 % (0-2); Eosinophils Absolute Auto 0.1 X10*3/uL (0.0-0.4); Eosinophils Percent Auto 0.6 % (0-4); Hemoglobin 12.7 g/dl (14.0-18.0); Imm Gran Abs Auto 0.02 X10*3/uL (0.00-0.03); Imm Gran Pct Auto 0.2 % (0.0-0.4); Lymphocytes Absolute Auto 3.7 X10*3/uL (1.2-4.9); Mean Corpuscular HGB Conc 33.4 g/dl (31.0-36.0); Mean Corpuscular Hemoglobin 30.3 pg (27.0-33.0); Mean Corpuscular Volume 90.7 fL (80.0-98.0); Mean Platelet Volume 9.9 fL (9.4-12.4); Monocytes Absolute Auto 0.8 X10*3/uL (0.1-1.2); Monocytes Percent Auto 8.3 % (2-11); Neutrophils Absolute Auto 4.8 x10*3/uL (2.0-8.3); Neutrophils Percent Auto 51.4 % (45-73); Platelet Count 299 X10*3/uL (160-400); Red Blood Count 4.19 X10*6/uL (4.60-5.80); Red Cell Distribution Width 13.6 % (11.0-16.0); White Blood Count 9.4 X10*3/uL (4.8-10.8)
[2024-12-28 17:14] LABS: Anion Gap 8 (12-20); Bilirubin Total 0.3 mg/dL (0.0-1.0); Blood Urea Nitrogen 18 mg/dL (9-16); Calcium 9.6 mg/dL (8.4-10.2); Carbon Dioxide 30 mmol/L (22-29); Chloride 104 mmol/L (96-108); Estimated Glomerular Filt Rate > 60; Glucose Random 75 mg/dL (60-115); Potassium 4.4 mmol/L (3.3-5.1); Sodium 138 mmol/L (135-145)
[2024-12-28 17:15] LABS: Alanine Aminotransferase 22 U/L (0-40); Albumin Level 4.6 g/dL (3.5-5.0); Aspartate Amino Transferase 37 U/L (5-37); C Reactive Protein < 0.10 mg/dL (< or = 0.50); Total Protein 7.2 g/dL (6.5-8.0)
[2024-12-28 17:17] LABS: Alkaline Phosphatase 72 U/L (39-117)
[2024-12-28 17:51] LABS: Erythrocyte Sedimentation Rate 7 MM/HR (0-15)
== END 2024-12-28 14:51 | disposition home or self-care (01) ==
LOC: HO.LAB 14:50
PROVIDERS: PCP Student in an Organized Health Care Education/Training Program; Visit Provider Student in an Organized Health Care Education/Training Program
DX: M19.90 Unspecified osteoarthritis, unspecified site (principal); Z79.1 Long term (current) use of non-steroidal anti-inflammatories (NSAID)
CPT/HCPCS: 36415; 80053; 85025; 85652; 86140; 99212

== ENCOUNTER 2025-05-27 10:42 | Outpatient (REF) | payer MEDICAID, SELFPAY ==
[2025-05-27 13:43] LABS: Hematocrit 42.9 % (42.0-52.0); Hemoglobin 13.9 g/dl (14.0-18.0); Mean Corpuscular HGB Conc 32.4 g/dl (31.0-36.0); Mean Corpuscular Hemoglobin 30.6 pg (27.0-33.0); Mean Corpuscular Volume 94.5 fL (80.0-98.0); NRBC Abs Auto 0.000 X10*3/uL (0.0-0.012); NRBC Pct Auto 0.0 /100WBC (0.0-0.2); Platelet Count 327 X10*3/uL (160-400); Red Blood Count 4.54 X10*6/uL (4.60-5.80); White Blood Count 9.6 X10*3/uL (4.8-10.8)
[2025-05-27 14:03] LABS: Alanine Aminotransferase 17 U/L (0-40); Albumin Level 4.8 g/dL (3.5-5.0); Alkaline Phosphatase 74 U/L (39-117); Anion Gap 12 (12-20); Aspartate Amino Transferase 26 U/L (5-37); Blood Urea Nitrogen 13 mg/dL (9-16); Calcium 9.5 mg/dL (8.4-10.2); Carbon Dioxide 29 mmol/L (22-29); Chloride 104 mmol/L (96-108); Cholesterol 221 mg/dL (<200); Estimated Glomerular Filt Rate > 60; HDL Cholesterol 50 mg/dL (>40); Potassium 5.0 mmol/L (3.3-5.1); Sodium 140 mmol/L (135-145); Total Protein 7.5 g/dL (6.5-8.0); Triglycerides 92 mg/dL (<150)
[2025-05-27 14:21] LABS: HBS Num1 118.40 mIU/mL (0-7.99); HBc Num1 0.08 S/CO (0.00-0.79); HBsAGNum1 0.46 S/CO (0.00-0.99); HIV Num 1 0.05 S/CO (0.00-0.99); Hepatitis B Surface Antigen Negative (Negative); Syphilis Screen Nonreactive (Nonreactive); ~HepC Num1 0.06 S/CO (0.00-0.79); ~Hepatitis B Surface Antibody REACTIVE (Nonreactive); ~Hepatitis C Antibody Nonreactive (Nonreactive)
== END 2025-05-27 10:43 | disposition home or self-care (01) ==
LOC: HO.HHCL 10:42
PROVIDERS: PCP Student in an Organized Health Care Education/Training Program; Visit Provider Student in an Organized Health Care Education/Training Program
DX: Z00.00 Encounter for general adult medical examination without abnormal findings (principal); Z11.4 Encounter for screening for human immunodeficiency virus [HIV]; Z11.59 Encounter for screening for other viral diseases; Z11.3 Encounter for screening for infections with a predominantly sexual mode of transmission; M19.90 Unspecified osteoarthritis, unspecified site; Z79.1 Long term (current) use of non-steroidal anti-inflammatories (NSAID)
CPT/HCPCS: 36415; 80053; 80061; 83036; 84443; 85027; 85652; 86704; 86706; 86780; 86803; 87340; 87389

== ENCOUNTER 2025-05-29 15:06 | Outpatient (AMB) | payer MEDICAID, SELFPAY ==
--- NOTE | 2025-05-29 15:08 | MHC.OFFVIS ---
Vital Signs 05/29/25 15:16 Height 5 ft 10 in Weight 167 lb 1.766 oz BMI 24.0 BP 122/80 Blood Pressure Location Lt brachial Position Sitting Pulse 81 Pulse Source Pulse Oximeter Pulse Oximetry (%) 98 Oxygen Delivery Method Room Air Intake Visit Reasons: AxSpA Intake Note: Patient presents for AxSpA follow up. Allergies Penicillins (PENICILLINS) Allergy (Unknown, Verified 05/29/25 15:14) Rash Medication List - Last Reconciled 05/29/25 by Christi Qiuntana MD lisdexamfetamine (Vyvanse) 50 mg PO QAM meloxicam 15 mg PO DAILY HPI Comments Details: Patient is a 35-year-old male with seronegative spondyloarthritis here today for follow up Interval History: Patient last seen 12/28/2024 with me. - On meloxicam 15mg daily - Restarted meloxicam 15 mg daily due to worsening joint pain. 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 He stated that the condition started about a year ago with intermittent joint pain, swelling and stiffness, including his hands, feet, right elbow, neck, upper back. He went to the emergency room 1 time when his entire body froze with stiffness and he was prescribed prednisone with dramatic improvement. He had another ER visit and was found to have right olecranon bursitis. This has since resolved. States that he has generalized morning stiffness affecting his upper neck, back and entire body lasting at least 30 minutes. He gets episodes with sausage digits affecting his right thumb. He states that has always been double jointed he never dislocated a joint. He denies any history of any rashes. Denies any GI upset. Denies any fevers. He has been taking meloxicam 7.5 mg daily regularly for past year and feels better overall. He is unaware of any family history of an autoimmune rheumatic disease Current Rheumatology Medication(s): Meloxicam 15mg daily [facility] Medical History Inflammatory arthritis ADD (attention deficit disorder) Neck pain Anxiety Elevated C-reactive protein (CRP) Pain in joint, multiple sites Back pain Surgical History History of knee joint replacement No history of previous surgery Family History Mother No problems noted. 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 Well appearing and in no apparent painful distress MSK Hands Right Hand: Able to make a fist. No swelling or tenderness to palpation of the MCPs, PIPs or DIPs. Left Hand: Able to make a fist. No swelling or tenderness to palpation of the MCPs, PIPs or DIPs. Wrists Right Wrist: Full ROM to flexion and extension. No swelling or TTP Left Wrist: Full ROM to flexion and extension. No swelling or TTP Elbows Right Elbow: Full ROM. No swelling or TTP. No TTP of the medial epicondyle. No TTP of the lateral epicondyle Left Elbow: Full ROM. No swelling or TTP. No TTP of the medial epicondyle. No TTP of the lateral epicondyle Shoulders Right shoulder: Full ROM. No swelling noted. No TTP of the AC joint. No TTP of the subacromial bursa. No TTP of the posterior shoulder Left shoulder: Full ROM. No swelling noted. No TTP of the AC joint. No TTP of the subacromial bursa. No TTP of the posterior shoulder Knees Right knee: Full ROM. No swelling noted. No TTP of the knee joint line. No TTP of pes anserine bursa Left knee: Full ROM. No swelling noted. No TTP of the knee joint line. No TTP of pes anserine bursa. Ankles Right ankle: Good ankle dorsiflexion and plantar flexion. No swelling. No TTP of the ankle joint Left ankle: Good ankle dorsiflexion and plantar flexion. No swelling. No TTP of the ankle joint Feet Right foot: Negative squeeze test Left foot: Negative squeeze test Tender points? No tenderness to palpation of the bilateral trapezius, supraspinatus, anterior costochondral junctions, bilateral suboccipital muscle insertions SKIN No rashes Vital Signs: Last Vital Signs Pulse 81 05/29/25 15:16 BP 122/80 05/29/25 15:16 Pulse Ox 98 05/29/25 15:16 Oxygen Delivery Method Room Air 05/29/25 15:16 BMI result Body Mass Index 24.0 Results Reviewed Results Reviewed: Laboratory Tests 12/28/24 05/27/25 05:50 10:57 WBC 9.6 RBC 4.54 L Hgb 13.9 L Hct 42.9 Plt Count 327 ESR 6 Sodium 140 Potassium 5.0 Chloride 104 Carbon Dioxide 29 BUN 13 Creatinine 0.75 AST 26 ALT 17 C-Reactive Protein < 0.10 Laboratory Tests 11/26/22 07/27/23 15:19 13:53 RAHUL Screen NEGATIVE HLA-B27 Negative Laboratory Tests 07/27/23 05/27/25 13:53 10:57 Hep Bs Antigen Negative Hep Bs Antibody REACTIVE Hep B Core Total Ab Nonreactive Hepatitis C Ab (EIA) Nonreactive HIV 1&2 Ab/P24 Ag 4thGn Nonreactive TB Test (T-Spot) Com Negative Assessment & Plan Assessment & Plan (1) Inflammatory arthritis: Code(s): M19.90 - Unspecified osteoarthritis, unspecified site Category: Medical Plan: #Seronegative spondyloarthritis Patient is a 35 y.o. male with seronegative spondyloarthritis currently well managed with NSAIDs. Also has hypermobility of his joints. Encouraged patient to do weight bearing exercises to strengthen the muscles Plan - Meloxicam 15mg daily - Labs today: CBC, AST, ALT, Cr - RTC 6 months (2) NSAID long-term use: Code(s): Z79.1 - [employer] (current) use of non-steroidal anti-inflammatories (NSAID) Category: Medical Plan: #Long-term Use of NSAIDs Discussed with patient the benefits and risk of NSAIDs for managing the rheumatic condition Benefits include: - Reduced the pain, improved mobility, and increased participation in activities Risks include: - GI upset, potential also worsening or formation (especially in patients > 65 years old) Recommended using proton pump inhibitors (PPIs) for the duration of NSAID use to reduce the risk of gastric ulcers Plan I spent 20 minutes reviewing the record and labs, taking a history, examining the patient, discussing the treatment plan, ordering diagnostic work up and documenting in the medical record Orders: Orders Creatinine Today Z79.1 - [employer] (current) use of non-steroidal anti-inflammatories (NSAID) Aspartate Amino Transferase Today Z79.1 - [employer] (current) use of non-steroidal anti-inflammatories (NSAID) Complete Blood Count Auto Diff Today Z79.1 - [employer] (current) use of non-steroidal anti-inflammatories (NSAID) Alanine Aminotransferase Today Z79.1 - residential (current) use of non-steroidal anti-inflammatories (NSAID) Medications: Refilled meloxicam 15 mg PO DAILY 90 tabs 1RF Coding Level of Care Code Est Pt Level 3 (85215) Complex EM visit Add On G2211 Diagnoses Inflammatory arthritis M19.90 NSAID long-term use Z79.1
[2025-05-29 15:16] VITALS: BP 122/80; PULSE 81; O2SAT 98; BMI 24.0
--- OUTSIDE RECORDS SUMMARY | 2025-05-29 19:33 | XMS_ITS | Encounter Summary ---
Author Organization [employer] Address [address] [facility] [address] [place] [address] Care Team Providers Care Translator Name Role Phone Berta Fox MD Primary Care Pro vider Encounter Details Date Type Department Care Team (Late st Contact Info) Description 05/27/2025 Orders Only [facility] [address] [place] [address] Berta Fox MD [address] [place] [address] Social History Tobacco Use Types Packs/Day Years Used Date Smoking Tobacco: Some Days Cigarettes Passive Smoke Exposure: Past Smokeless Tobacco: Never Comments:Started at 18 y of age --3 [...] the past 12 months, has t he electric, gas, oil or water company threatened to shut [...] Orientation Straight 05/31/2022 10 :31 AM EDT documented as of this encounter Plan of Treatment Upcoming Encounters Date Type Department Care Team (Late st Contact Info) Description 08/09/2025 10:45 AM EST Office Visit [facility] [address] [place] [phone] Berta Fox MD [address] [place] [phone] documented as of this encounter Visit Diagnoses Not on filedocumented in this encounter Additional Health Concerns Assessment Noted Time PHQ-9 Depression Total Score: 4 06/14/20 24 9:49 AM EST documented as of this encounter Care Teams Translator Relationship Specialty Start Date End Date Berta Fox MD [address] [place] [phone] PCP - General Internal Medicine 12/20/22 documented as of this encounter
--- OUTSIDE RECORDS SUMMARY | 2025-05-29 19:33 | XMS_ITS | Encounter Summary ---
Author Organization [employer] Address [address] [facility] [address] [place] [address] Care Team Providers Care Tenter Name Role Phone Berta Fox MD Primary Care Pro vider Reason for Visit * Reason Onset Date Comments Results 05/27/2025 Encounter Details Date Type Department Care Team (Latest Contact Info) Description 05/27/2025 Results Follow-Up [facility] [address] [place] [address] Berta Fox MD [address] [place] [address] CBC, Comprehensive Metabolic Panel, Hemoglobin A1c, Additional followed-up results: 8 Social History Tobacco Use Types Packs/Day Years [...] AM EDT documented as of this encounter Miscellaneous Notes * Telephone Encounter - Corry Prado RN - 05/27/2025 3:18 PM EDT Tc placed to the pt to inform of most recent lab results below showing elevated lipid levels. The pt was given lifestyle modifications including dietary changes and increased exercise. The pt was recommended to start on [place] 3 fatty acids and was agreeable to PCP placing a prescription for this [facility]. Pt to follow up in August with PCP at next office appointment. ----- Message from Berta Headley MD sent at 05/27/2025 2:49 PM EDT ----- Please inform pt that from labs done all normal except for still elevated lipids Total ch 221 and LDL 153 Advised life style changes,decrease fast food , and improve vegetables in diet If pt interested can take omega 3 --- 1 tab a day - OTC but if needed me I can prescribe to pharmacy Please advise pt to keep apt w me scheduled in 08/2025 Thanks ----- Message ----- From: Interface, Lab Results In Sent: 05/27/2025 1:38 PM EDT To: Berta Headley MD * Result Encounter Note - Berta Headley MD - 05/27/2025 2:49 PM EDT Please inform pt that from labs done all normal except for still elevated lipids Total ch 221 and LDL 153 Advised life style changes,decrease fast food , and improve vegetables in diet If pt interested can take omega 3 --- 1 tab a day - OTC but if needed me I can prescribe to pharmacy Please advise pt to keep apt w me scheduled in 08/2025 Thanks documented in this encounter Plan of Treatment Upcoming Encounters Date Type Department Care Team (Late st Contact Info) Description 08/09/2025 10:45 AM EST Office Visit [facility] [address] [place] [phone] Berta Fox MD [address] [place] [phone] documented as of this encounter Visit Diagnoses Not on filedocumented in this encounter Additional Health Concerns Assessment Noted Time PHQ-9 Depression Total Score: 4 06/14/20 24 9:49 AM EST documented as of this encounter Care Teams Tenter Relationship Specialty Start Date End Date Berta Fox MD [address] [place] [phone] PCP - General Internal Medicine 12/20/22 documented as of this encounter
--- OUTSIDE RECORDS SUMMARY | 2025-05-29 19:33 | XMS_ITS | Encounter Summary ---
Author Organization [employer] Address [address] [facility] 7[address] [place] [address] Care Team Providers Care Aqua Ammonia Operator Name Role Phone Berta Fox MD Primary Care Pro vider Reason for Visit * Reason Onset Date Comments Appointment Request 04/18/2025 Encounter Details Date Type Department Care Team (Late st Contact Info) Description 04/18/2025 Telephone [facility] [address] [place] [address] Berta Fox MD [address] [place] [address] Appointment Request Social History Tobacco Use Types Packs/Day Years [...] encounter Miscellaneous Notes * Telephone Encounter - Chase Garcia - 04/18/2025 4:05 PM EDT Tc from pt requesting to r/s no showed apt. Nothing for PAR to schedule. Contact pt at [phone] documented in this encounter Plan of Treatment Upcoming Encounters Date Type Department Care Team (Late st Contact Info) Description 08/09/2025 10:45 AM EST Office Visit [facility] [address] [place] [phone] Berta Fox MD [address] [place] [phone] documented as of this encounter Visit Diagnoses Not on filedocumented in this encounter Additional Health Concerns Assessment Noted Time PHQ-9 Depression Total Score: 4 06/14/20 24 9:49 AM EST documented as of this encounter Care Teams Aqua Ammonia Operator Relationship Specialty Start Date End Date Berta Fox MD [address] [place] [phone] PCP - General Internal Medicine 12/20/22 documented as of this encounter
--- OUTSIDE RECORDS SUMMARY | 2025-05-29 19:33 | XMS_ITS | Clinical Summary ---
Author Organization [employer] Address [address] [place] [address] Care Team Providers Care Lead Mechanical Engineer Name Role Phone Berta Fox MD Primary Care Pro vider Allergies Active Allergy Reactions Criticality Noted Date Comments Penicillins Rash Low 01/03/2017 In 2009 generalized skin rash after PNC Medications Acetaminophen Extra Strength 500 MG tablet Take 1 tablet by mouth every 6 (six) hours if needed. 09/17/2022 Active Vyvanse 40 MG capsule Take 1 capsule by mouth Once per day. 11/21/2024 Active meloxicam (Mobic) 7.5 MG tablet Take 1 tablet (7.5 mg) by mouth Once per day. 30 tablet 1 12/12/2024 Active omega-3 acid ethyl esters (Lovaza) 1 g capsule Take 1 capsule (1 g) by mouth Once per day. 90 capsule 1 05/27/2025 Active Active Problems Problem Noted Date Diagnosed Date [...] Reports to be following w psychiatrist at [facility] -Dr Guerin PHQ9 is 3 but due to poor sleep but states because has a baby at home denies depression no SI ,denies sharon nor halluciantions -reports to feel stable Assessment & Plan (01/31/2023 6:39 PM EDT): Reports to be following w psychiatrist at [facility] -Dr Guerin PHQ9 is 3 today [...] Reports hx of PNC allergy-referred already to milking machine operator to clarify if true allergy Assessment & Plan (01/31/2023 6:39 PM EDT): Reports hx of PNC allergy-referred today to milking machine operator to clarify if true allergy Resolved Problems [...] call pt w result -will refer to incubator operator w lab results Olecranon bursitis, right elbow 01/31/2023 12/20/2023 Assessment & Plan (03/29/2023 2:51 PM EDT): Pt w seems chronic swelling in right olecranon-per pt reports improvement but unsure reason for ongoing soft swelling -appears bursitis not from elbow joint Improved -meloxicam prn x pain -referred to carpenters helper today Assessment & Plan (01/31/2023 6:30 PM EDT): Pt w seems chronic swelling in right olecranon-per pt reports improvement but unsure reason for ongoing soft swelling -appears bursitis not from elbow joint -meloxicam prn x pain -will refer at next apt to carpenters helper with labs done Tachycardia 01/31/2023 06/14/2024 Assessment [...] Encounters Date Type Department Care Team Description 05/27/2025 Orders Only [facility] [address] [place] [address] Berta Fox MD 05/27/2025 Results Follow-Up [facility] [address] [place] [address] Berta Fox MD CBC, Comprehensive Metabolic Panel, Hemoglobin A1c, Additional followed-up results: 8 04/18/2025 Telephone [facility] [address] [place] [address] Berta Fox MD Appointment Request from Last 3 Months Immunizations Immunization Administration [...] 87 12/12/2024 3:03 PM EDT Temperature 36.6 C (97.9 F) 12/12/2024 3:03 PM EDT Respiratory Rate 20 12/12/2024 3:03 PM EDT [...] Description 08/09/2025 10:45 AM EST Office Visit [facility] [address] [place], [place] [phone] Berta Fox MD [address] [place], [place] [phone] Health Maintenance Due Date Last Done Comments Family Planning (PISQ) 2004 HPV Vaccines (1 - Male 3-dose series) 2004 Hepatitis B Vaccines (1 of 3 - 19+ 3-dose series) 2008 Influenza Vaccine (#1) 2025 , 08/08/2021, 04/27/2017 Alcohol/Substance Use Screening 06/14/2025 06/14/2024 Depression Screening 06/14/2025 06/14/2024, 06/14/20 24 Disability Screening 06/14/2025 06/14/2024 Tobacco Screening 06/14/2025 06/14/2024 SDOH Screening 12/05/2025 12/05/2024 Lipid Panel 05/27/2030 05/27/2025, 01/31/2023 DTaP/Tdap/Td Vaccines (2 - Td or Tdap) 08/08/2031 08/08/2021 Zoster Vaccines (1 of 2) 2039 RSV Patients and Patients Aged 60 years or older (1 - 1-dose 75+ series) 2064 Pneumococcal Vaccine: Pediatrics (0 to 5 Years) and At-Risk Patients (6 to 49) Years Completed 01/31/2023 COVID-19 Vaccine Completed 06/14/2024, 09/2022, 09/10/2021, Additional history exists HIV Screening Completed 05/27/2025, 01/31/2023 Hepatitis C Screening Completed 05/27/2025 , 07/27/2023, 01/31/2023 HIB Vaccines Aged Out No longer eligi [...] Procedure Name Priority Date/Time Associated Diagnosis Comments SED RATE BY MODIFIED WESTERGREN Routine 05/27/2025 10:57 AM EDT TSH W/REFLEX TO FT4 Routine 05/27/2025 1 0:57 AM EDT Annual physical exam SYPHILIS SCREEN Routine 05/27/2025 10:57 AM EDT Annual physical exam LIPID PANEL, STANDARD Routine 05/27/2025 10:57 AM EDT Annual physical exam HIV 1/2 ANTIGEN/ANTIBODY, FOURTH GENERATION W/RFL Routine 05/27/2025 10:57 AM EDT Annual physical exam HEPATITIS C AB W/REFL TO HCV RNA, QN, PCR Routine 05/27/2025 10:57 AM EDT Annual physical exam HEPATITIS B SURFACE ANTIGEN, EIA Routine 05/27/2025 10:57 AM EDT Annual physical exam HEPATITIS B SURFACE ANTIBODY, QUALITATIVE Routine 05/27/2025 10:57 AM EDT Annual physical exam HEPATITIS B CORE AB TOTAL Routine 05/27/2025 10:57 AM EDT Annual physical exam HEMOGLOBIN A1C Routine 05/27/2025 10:57 AM EDT Annual physical exam COMPREHENSIVE METABOLIC PANEL Routine 05/27/2025 10:57 AM EDT Annual physical exam CBC Routine 05/27/2025 10:57 AM EDT Annual physical exam from Last 3 Months Results * Syphilis Screen (05/27/2025 10:57 AM EDT) Syphilis Screen Nonreactive Nonreactive [facility] Blood 05/27/2025 10:5 7 AM EDT 05/27/2025 1:19 PM EDT Berta Headley MD LAB BLOOD ORDERAB LES Final Result [facility] [address] [place] [phone] * TSH with Reflex to Free T4 (05/27/2025 10:57 AM EDT) TSH reflex Free T4 1.38 0.32 - 4.0 uIU/mL [facility] Blood 05/27/2025 10:5 7 AM EDT 05/27/2025 1:19 PM EDT Berta Headley MD LAB BLOOD ORDERAB LES Final Result Performing Organization Address [facility] Co de Phone Number [facility] [address] [place] [phone] * Hepatitis C Antibody with Reflex to HCV, RNA, Quantitative, Real-Time PCR (05/27/2025 10:57 AM EDT) Hepatitis C Antibody Nonreactive Nonreactive [facility] Comment:Antibodies to HCV no t detected; does not exclude early acuteHCV infection. Blood Venous blood specimen / Unknown 05/27/2025 10:57 AM EDT 05/27/2025 1:19 PM EDT Berta Headley MD LAB BLOOD ORDERAB LES Final Result Performing Organization Address [facility]/ZIP Co de Phone Number [facility] [address] [place] [phone] * Hepatitis B surface antigen, EIA (05/27/2025 10:57 AM EDT) Pathologist [facility] Hepatitis B Surface Ag Negative Negative [facility] Blood Venous blood specimen / Unknown 05/27/2025 10:57 AM EDT 05/27/2025 1:19 PM EDT Berta Headley MD LAB BLOOD ORDERAB LES Final Result Performing Organization Address City/[facility]/ZIP Co de Phone Number [facility] [address] [place] [phone] * Hepatitis B Core Antibody, Total (05/27/2025 10:57 AM EDT) Pathologist [facility] Hepatitis B Core Antibody Nonreactive Nonreactive [facility] Blood Venous blood specimen / Unknown 05/27/2025 10:57 AM EDT 05/27/2025 1:19 PM EDT Berta Headley MD LAB BLOOD ORDERAB LES Final Result Performing Organization Address [facility] Co de Phone Number [facility] [address] [place] [phone] * HIV-1/2 Antigen and Antibodies, Fourth Generation, with Reflexes (05/27/2025 10:57 AM EDT) Pathologist [facility] HIV AB/AG Nonreactive Nonreactive [facility] Comment:HIV-1 p24 Ag and/or HIV-1/HIV-2 Ab not detected.A test result that is nonreactive does not exclude thepossibility of exposure to or infection with HIV-1 and/orHIV-2. Nonreactive results in this assay for individualswith prior exposure to HIV-1 and/or HIV-2 may be due toantigen and antibody levels that are below the limit ofdetection of this assay.[facility] HIV Ag/Ab Combo assay result andsupplemental assay results should be interpreted inconjunction with the patient's clinical presentation,history and other laboratory results. If the results areinconsistent with clinical evidence, additional testing issuggested to confirm the result. Blood Venous blood specimen / Unknown 05/27/2025 10:57 AM EDT 05/27/2025 1:19 PM EDT Berta Headley MD LAB BLOOD ORDERAB LES Final Result Performing Organization Address [facility] Co de Phone Number [facility] [address] [place] [phone] * Hepatitis B Surface Antibody, Qualitative (05/27/2025 10:57 AM EDT) Pathologist [facility] ~Hepatitis B Surface Antibody REACTIVE Nonreactive [facility] Comment:REACTIVE: > 11.99 mI U/mL Blood Venous blood specimen / Unknown 05/27/2025 10:57 AM EDT 05/27/2025 1:19 PM EDT Berta Headley MD LAB BLOOD ORDERAB LES Final Result Performing Organization Address [facility] de Phone Number [facility] [address] [place] [phone] * Sed Rate by Modified Familiaergren (05/27/2025 10:57 AM EDT) Erythrocyte Sedimentation Rate 6 0 - 15 MM/HR [facility] Comment:Patients with polycy themia and many hemoglobin abnormalitiesmay have depressed sed rates whereas patients with anemiamay have elevated sed rates. 05/27/2025 10:5 7 AM EDT 05/27/2025 1:19 PM EDT Generic External Data Provider LAB BLOOD ORDERAB LES Final Result Performing Organization Address [facility] Co de Phone Number [facility] [address] [place] [phone] * (ABNORMAL) CBC (05/27/2025 10:57 AM EDT) White Blood Count 9.6 4.8 - 10.8 X10*3/uL [facility] Red Blood Count 4.54(L) 4.60 - 5.80 X10*6/uL [facility] Hemoglobin 13.9(L) 14.0 - 18.0 g/dl [facility] Hematocrit 42.9 42.0 - 52.0 % [facility] Mean Corpuscular Volume 94.5 80.0 - 98.0 fL [facility] Mean Corpuscular Hemoglobin 30.6 27.0 - 33.0 pg [facility] Mean Corpuscular HGB Conc 32.4 31.0 - 36.0 g/dl [facility] Red Cell Distribution Width 13.5 11.0 - 16.0 % [facility] Platelet Count 327 160 - 400 X10*3/uL [facility] Mean Platelet Volume 10.4 9.4 - 12.4 fL [facility] NRBC Pct Auto 0.0 0.0 - 0.2 /100WBC [facility] NRBC Abs Auto 0.000 0.0 - 0.012 X10*3/uL [facility] Blood Venous blood specimen / Unknown 05/27/2025 10:57 AM EDT 05/27/2025 1:19 PM EDT Berta Headley MD LAB BLOOD ORDERAB LES Final Result [facility] [address] [place] [phone] * Hemoglobin A1c (05/27/2025 10:57 AM EDT) Hemoglobin A1c 5.4 <6.0 % [facility] Comment:Hemoglobin A1C Refer ence Range Adults: 4.8 - 6.0 % Non diabetic: < 6.0 % Goal: < 7.0 %Additional Action Suggested: > 8.0 %Note: Hemoglobin A1c results are invalid for patients with abnormal amounts of HbF. Blood transfusions may impact the HbA1c concentration in the patient sample. Estimated Average Glucose 108 mg/dL [facility] Comment:eAG = Estimated ave rage glucose which is %A1C expressed asaverage glucose, using the formula of the H0W-JvtzymnWkzriis Glucose study (ADAG), Diabetes Care, Vol.31,#8,Mar. 2007 Blood Venous blood specimen / Unknown 05/27/2025 10:57 AM EDT 05/27/2025 1:19 PM EDT us Berta Headley MD LAB BLOOD ORDERAB LES Final Result [facility] [address] [place] [phone] * (ABNORMAL) Lipid Panel, Standard (05/27/2025 10:57 AM EDT) Triglycerides 92 <150 mg/dL [facility] Comment:Desirable Triglyceri de: less than 150 mg/dLBorderline High Triglyceride 150-199 mg/dLHigh Triglyceride: 200-499 mg/dLVery High Triglyceride: greater than or equal to 5OO mg/dL Cholesterol 221(H) <200 mg/dL [facility] Comment:Desirable Cholestero l: less than 200 mg/dLBorderline High Cholesterol: 200-239 mg/dLHigh Cholesterol: greater than 239 mg/dL LDL Cholesterol Calculated 153(H) <100 mg/dL [facility] Comment:Desirable LDL: less than 100 mg/dLNear Optimal/Above Optimal LDL: 110- 129 mg/dLBorderline High LDL: 130-159 mg/dLHigh LDL: 160-189 mg/dLVery High LDL: greater than or equal to 190 mg/dL HDL Cholesterol 50 >40 mg/dL [facility] Comment:Desirable HDL: great er than 40 mg/dL Note: This HDL assay may give artificially low results in patients with liver disease. Blood Venous blood specimen / Unknown 05/27/2025 10:57 AM EDT 05/27/2025 1:19 PM EDT us Berta Headley MD LAB BLOOD ORDERAB LES Final Result [facility] [address] [place] [phone] * Comprehensive Metabolic Panel (05/27/2025 10:57 AM EDT) Sodium 140 135 - 145 mmol/L [facility] Potassium 5.0 3.3 - 5.1 mmol/L [facility] Chloride 104 96 - 108 mmol/L [facility] Carbon Dioxide 29 22 - 29 mmol/L [facility] Anion Gap 12 12 - 20 [facility] Urea Nitrogen (BUN) 13 9 - 16 mg/dL [facility] Creatinine, Serum 0.75 0.5 - 1.4 mg/dL [facility] Estimated Glomerular Filt Rate >60 [facility] Comment:Chronic Kidney Disea se: Estimated GFR < 60 mL/min/1.79o2Wkcsbs Kidney Disease: Estimated GFR < 15 mL/min/1.73m2 Glucose 103 60 - 115 mg/dL [facility] Calcium 9.5 8.4 - 10.2 mg/dL [facility] Bilirubin, Total 0.3 0.0 - 1.0 mg/dL [facility] Aspartate Amino Transferase 26 5 - 37 U/L [facility] Alanine Aminotransferase 17 0 - 40 U/L [facility] Total Protein 7.5 6.5 - 8.0 g/dL [facility] Albumin Level 4.8 3.5 - 5.0 g/dL [facility] Alkaline Phosphatase 74 39 - 117 U/L [facility] Blood Venous blood specimen / Unknown 05/27/2025 10:57 AM EDT 05/27/2025 1:19 PM EDT us Berta Headley MD LAB BLOOD ORDERAB LES Final Result [facility] [address] [place] [phone] from Last 3 Months Insurance [facility] C[facility] Care Teams Lead Mechanical Engineer Relationship Specialty Start Date End Date Berta Fox MD [address] [place] [phone] PCP - General Internal Medicine 12/20/22
== END 2025-05-29 15:38 | disposition home or self-care (01) ==
LOC: HO.RHES 15:07
PROVIDERS: PCP Student in an Organized Health Care Education/Training Program; Visit Provider Student in an Organized Health Care Education/Training Program
DX: M19.90 Unspecified osteoarthritis, unspecified site (principal); Z79.1 Long term (current) use of non-steroidal anti-inflammatories (NSAID)
CPT/HCPCS: 99213

== ENCOUNTER → 2025-05-29 15:06 | Outpatient (BNVA) | payer MEDICAID, SELFPAY | PROVIDERS: PCP Student in an Organized Health Care Education/Training Program; Visit Provider Student in an Organized Health Care Education/Training Program | DX: M19.90 Unspecified osteoarthritis, unspecified site (principal); Z79.1 Long term (current) use of non-steroidal anti-inflammatories (NSAID) | CPT/HCPCS: 99212 ==

== ENCOUNTER 2025-07-20 09:51 | Emergency (ER) | payer MEDICAID, SELFPAY ==
[2025-07-20 09:56] VITALS: BP 153/74; PULSE 102; RESP 18; TEMP 36.7; O2SAT 99; BMI 22.2
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
[2025-07-20 11:32] VITALS: BP 153/74; PULSE 102; RESP 18; TEMP 36.7; O2SAT 99
== END 2025-07-20 11:32 | disposition home or self-care (01) ==
PROVIDERS: Emergency Provider Emergency Medicine; PCP Student in an Organized Health Care Education/Training Program
DX: T25.121A Burn of first degree of right foot, initial encounter (principal); T31.0 Burns involving less than 10% of body surface; M79.671 Pain in right foot; X11.8XXA Contact with other hot tap-water, initial encounter; Y93.89 Activity, other specified; Y92.89 Other specified places as the place of occurrence of the external cause; Y99.8 Other external cause status; F17.210 Nicotine dependence, cigarettes, uncomplicated; Z79.899 Other long term (current) drug therapy
CPT/HCPCS: 16020; 99283; 99284